=== PATIENT | female | born 1980 | race Hispanic/Latino ===

== ENCOUNTER 2021-07-15 14:51 | Outpatient (CLI) | payer OTHER, SELFPAY ==
--- NOTE | ~2021-07-15 | MM_ITS ---
EXAMINATION: MM screening lexis BI w lois HISTORY: Screening TECHNIQUE: Craniocaudal and mediolateral oblique 3-D tomosynthesis images were obtained and synthetic 2-D images were generated. CAD analysis was submitted and interpreted. COMPARISON: No prior mammogram is available for comparison at this institution. BREAST PARENCHYMAL COMPOSITION: The breasts are heterogenously dense, which may obscure small masses FINDINGS: There are bilateral breast masses which are obscured by overlying fibroglandular content. T here are no suspicious calcifications or architectural distortion. IMPRESSION: 1. Multiple bilateral breast masses. 2. Additional mammographic views and possible breast ultrasound are recommended. BI-RADS Category 0: Incomplete: Needs additional imaging evaluation. Reviewed, dictated and finalized at location A. IT BREEDER IMPRESSION: 1. Multiple bilateral breast masses. 2. Additional mammographic views and possible breast ultrasound are recommended . BI-RADS Category 0: Incomplete: Needs additional imaging evaluation.
== END 2021-07-15 14:52 | disposition home or self-care (01) ==
LOC: ANHIMG 14:54
PROVIDERS: PCP Internal Medicine Infectious Disease; Visit Provider Internal Medicine Infectious Disease
DX: Z12.31 Encounter for screening mammogram for malignant neoplasm of breast (principal); R92.8 Other abnormal and inconclusive findings on diagnostic imaging of breast
CPT/HCPCS: 77063; 77067

== ENCOUNTER 2021-08-08 13:40 | Outpatient (CLI) | payer OTHER, SELFPAY ==
--- NOTE | ~2021-08-08 | MMUS_ITS ---
EXAMINATION: MM diagnostic lexis RT w lois, US breast RT limited HISTORY: Follow-up right breast mass TECHNIQUE: Additional 3-D tomosynthesis images of the right breast were performed and synthetic 2-D i mages were generated. CAD analysis was submitted and interpreted. High resolution Limited right breas t ultrasound was performed. COMPARISON: Comparison to multiple prior studies sequentially, with oldest reviewed study dated 05/25. BREAST PARENCHYMAL COMPOSITION: The breasts are heterogenously dense, which may obscure small masses FINDINGS: MAMMOGRAPHIC FINDINGS: There is a mass in the upper outer quadrant of the right breast with layering milk of calcium. There are no suspicious calcifications or architectural distortion. ULTRASOUND: Limited right breast ultrasound: There are multiple cysts of the right breast in the upper outer quad rant, largest at 9:00, 4 cm from the nipple measuring 2.6 cm greatest dimension. This corresponds to the mammographic abnormality. No suspicious sonographic masses to suggest malignancy. IMPRESSION: 1. No evidence for malignancy in the right breast. Benign cysts. 2. Routine yearly screening mammogram and regular clinical breast examination are recommended. BI-RADS Category 2: Benign finding(s). Reviewed, dictated and finalized at location A. MANAGEMENT INTERNSHIP IMPRESSION: 1. No evidence for malignancy in the right breast. Benign cysts. 2. Routine yearly screening mammogram and regular clinical breast examination a re recommended. BI-RADS Category 2: Benign finding(s).
== END 2021-08-08 13:41 | disposition home or self-care (01) ==
LOC: ANHIMG 13:42
PROVIDERS: PCP Internal Medicine Infectious Disease; Visit Provider Internal Medicine Infectious Disease
DX: R92.8 Other abnormal and inconclusive findings on diagnostic imaging of breast (principal)
CPT/HCPCS: 76642; 77061; 77065; G0279

== ENCOUNTER 2023-07-25 12:18 | Inpatient (IN) | payer OTHER, SELFPAY ==
[2023-07-25] VITALS (11 sets, daily range): BP systolic 101–128; BP diastolic 63–80; PULSE 61–80; RESP 12–24; TEMP 36.5–36.7; O2SAT 96–100
--- NOTE | ~2023-07-25 | US_ITS ---
EXAMINATION: US right upper quadrant DATE: 07/25/2023 15:19 INDICATION: Pancreatitis. Right upper quadrant abdominal pain. TECHNIQUE: Multiple grayscale and Doppler ultrasound images of the abdomen were obtained. COMPARISON: CT abdomen and pelvis 07/25/23 FINDINGS: The visualized portions of the head and body of pancreas are normal. The liver is normal wi thout focal lesion. There is normal flow in main portal vein. The gallbladder is absent. The common d uct is normal and measures 6 mm. IMPRESSION: 1. Normal right upper quadrant ultrasound status post cholecystectomy. Reviewed, dictated and finalized at location A. R GENERATION TECHNICIAN
--- NOTE | ~2023-07-25 | CT_ITS ---
EXAMINATION: CT abdomen pelvis w con DATE: 07/25/2023 15:03 INDICATION: Pancreatitis TECHNIQUE: Computed tomography (CT) of the abdomen and pelvis was performed with 100 mL Omnipaque-350 intravenous contrast. Automated exposure control and iterative reconstruction technique were employe d. The dose-length product was 359.14 mGy-cm. COMPARISON: 07/19/2018 FINDINGS: Mild dependent atelectasis in bilateral lower lobes. Heart size is normal. No pericardial or pleural effusion. There are low-attenuation likely cystic lesions in the bilateral breasts. In the left breas t is a larger 3.1 x 2.3 cm cystic mass with lobular peripherally enhancing margins. Stable appearance of chronic mild intra and extrahepatic biliary ductal dilation likely related to prior cholecystecto my with surgical clips the gallbladder fossa. Spleen, pancreas, bilateral adrenal glands and kidneys are normal. Bladder, uterus and left ovary are unremarkable. 1.9 cm peripherally enhancing corpus lut eum cyst at the right ovary. Bowels including the appendix are normal. No free intraperitoneal gas or fluid. No pathologically enlarged abdominal or pelvic lymphadenopathy. Chronic mild likely physiolog ic anterior wedging at T11 and T12. Mild lumbar and lower thoracic spondylosis. IMPRESSION: 1. No acute intra-abdominal/pelvic process. 2. Cystic lesions at the bilateral breasts most prominent at 3.1 x 2.3 cm cystic mass with lobular pe ripherally enhancing margins. Correlate with prior mammography and right breast ultrasound. Reviewed, dictated and finalized at location A. EGE AND CAREER COUNSELOR IMPRESSION: 1. No acute intra-abdominal/pelvic process. 2. Cystic lesions at the bilateral breasts most prominent at 3.1 x 2.3 cm cysti c mass with lobular peripherally enhancing margins. Correlate with prior mammog neto and right breast ultrasound.
[2023-07-25 12:41] LABS: Basophils Absolute Auto 0.1 K/mm3 (0.0-0.1); Basophils Percent Auto 0.8 % (0.2-1.2); Eosinophils Absolute Auto 0.6 K/mm3 (0-0.3); Eosinophils Percent Auto 8.9 % (0-4.4); Hematocrit 44.7 % (37.0-47.0); Hemoglobin 14.4 g/dL (12.0-15.0); Immature Granulocyte Absolute 0.01 K/mm3 (0.00-0.031); Immature Granulocyte Percent A 0.2 % (0-0.5); Lymphocytes Absolute Auto 1.55 K/mm3 (0.9-3.2); Lymphocytes Percent Auto 23.7 % (18.3-44.2); Mean Corpuscular HGB Conc 32.2 g/dl (32-36); Mean Corpuscular Hemoglobin 29.3 pg (26-34); Mean Corpuscular Volume 90.9 fl (80-100); Mean Platelet Volume 9.9 fl (7.4-10.4); Monocytes Absolute Auto 0.4 K/mm3 (0.1-0.6); Monocytes Percent Auto 5.3 % (2.6-8.5); Neutrophils Percent Auto 61.1 % (45.5-73.1); Platelet Count Result 234 k/mm3 (150-375); Red Blood Count 4.92 M/mm3 (4.2-5.4); Red Cell Distribution Width 12.5 % (11.5-14.5); White Blood Count 6.6 K/mm3 (4.5-10.0)
[2023-07-25 12:51] LABS: Appearance Urine Clear (Clear); Bilirubin Urine Negative (Negative); Blood Urine Negative (Negative); Color Urine Yellow (Yellow); Glucose Urine UA Negative (Negative); Ketones Urine Negative (Negative); Leukocyte Esterase Ur Negative LEU/UL (Negative); Nitrate Urine Negative (Negative); Protein Urine Negative (Negative); Specific Grav Ur 1.013 (1.001-1.035); Urobilinogen Urine 0.2 mg/dL (<2.0)
[2023-07-25 12:55] LABS: Add Urine Microscopic? NO
[2023-07-25 13:04] LABS: Alanine Aminotransferase 65 U/L (6-35); Albumin Level 4.5 g/dL (3.5-5.1); Alkaline Phosphatase 135 U/L (38-126); Anion Gap 10 mmol/L (8-16); Aspartate Amino Transferase 109 U/L (14-36); Bilirubin,Total 0.5 mg/dL (0.2-1.3); Blood Urea Nitrogen 11 mg/dL (7-17); Calcium 9.6 mg/dL (8.4-10.2); Carbon Dioxide 28 mmol/L (22-30); Chloride 103 mmol/L (98-107); Estimated CRCL calculation 74 ml/min; Estimated Glomerular Filt Rate > 60; Glucose 94 mg/dL (65-110); Lipase 1126 U/L (23-300); Potassium 4.1 mmol/L (3.4-5.0); Sodium 141 mmol/L (137-145)
--- NOTE | 2023-07-25 13:55 | ECG_ITS ---
Measurements Intervals [place] Rate: 72 P: 39 VA: 118 QRS: 37 QRSD: 82 T: 32 QT: 403 QTc: 442 Interpretive Statements SINUS RHYTHM WITH SHORT VA INTERVAL LOW VOLTAGE- PRECORDIAL LEADS CONSIDER ANTEROSEPTAL INFARCT, AGE INDETERMINATE BASELINE WANDER- AVF, V5 ABNORMAL ECG NO PREVIOUS ECG AVAILABLE FOR COMPARISON Electronically Signed On 07-25-2023 15:52:39 BROOM MAN by Geoffrey Garcia D.O.
--- NOTE | 2023-07-25 13:55 | ED.ABDPAIN ---
HPI - Abdominal Pain General Chief Complaint: Abdominal Pain <Brenda Mccormack PA-C - Last Filed: 07/25/23 17:40> Stated Complaint: abdominal pain <Brenda Mccormack PA-C - Last Filed: 07/25/23 17:40> Time Seen by Provider: 07/25/23 13:43 <Brenda Mccormack PA-C - Last Filed: 07/25/23 17:40> History of Present Illness HPI narrative: 42-year-old with recent history of pancreatitis, s/p cholecystectomy reports for evaluation for epigastric abdominal pain that radiates to her back x6 days. Patient states symptoms started 6 days ago while at work and after eating. She was seen at [facility] emergency department and was admitted to the hospital for pancreatitis. Patient states she was started on Protonix and discharged home. Reports she had MRI, CT scan and ultrasound performed of her abdomen. She was discharged home 4 days ago and states she had mildly improved, however had eggs and apple juice for breakfast today which made her abdominal pain significantly worse. She reports 2 episodes of emesis with associated nausea. Denies fever, chest pain or shortness of breath, dysuria hematuria, diarrhea, melena or hematochezia, hematemesis. She denies alcohol or drug use. <Brenda Mccormack PA-C - Last Filed: 07/25/23 17:40> Related Data Allergies/Adverse Reactions: Allergies Allergy/AdvReac Type Severity Reaction Status Date / Time tramadol AdvReac Unknown Nausea and Verified 07/25/23 13:56 Vomiting <Brenda Mccormack PA-C - Last Filed: 07/25/23 17:40> Review of Systems Review of Systems: CONSTITUTIONAL: Denies fever, chills, or sweats. EYES: Denies visual changes, redness, or discharge. ENT: Denies rhinorrhea, congestion, sore throat, or otalgia. CARDIOVASCULAR: Denies chest pain, palpitations, or edema. RESPIRATORY: Denies cough or dyspnea. GASTROINTESTINAL: See HPI GENITOURINARY: Denies dysuria or hematuria. SKIN: Denies rash or itching. MUSCULOSKELETAL: Denies back pain, joint pain, or myalgia. NEUROLOGIC: Denies headache, numbness, or weakness. PSYCHIATRIC: Denies anxiety or depression. <Brenda Mccormack PA-C - Last Filed: 07/25/23 17:40> Exam Narrative: GENERAL: Well-appearing, well-nourished, and in no acute distress. HEAD: Normocephalic, atraumatic. EYES: PERRLA and EOMI. ENT: Nares clear, no rhinorrhea or epistaxis. Mucous membranes moist. NECK: Supple. CHEST: Clear to auscultation. No respiratory distress. HEART: Regular rate and rhythm. No murmur heard. Normal peripheral pulses. ABDOMEN: generalized abdominal pain, worse in the epigastrium with guarding. No rebound or rigidity. Negative Noé's sign, negative Jamison Red sign. No CVA tenderness. EXTREMITIES: Normal range of motion. No edema. SKIN: Warm, dry, no rash. NEURO: No focal deficits. Alert and oriented x3 <Brenda Mccormack PA-C - Last Filed: 07/25/23 17:40> Course TOBACCO EDUCATOR/PA Physician Supervision For this patient encounter, I reviewed the TOBACCO EDUCATOR or PA documentation, treatment plan, and medical decision making <Andres Livingston MD - Last Filed: 07/25/23 18:24> Vital Signs Vital signs: Vital Signs Temperature 97.7 F 07/25/23 12:26 Pulse Rate 74 07/25/23 12:26 Respiratory Rate 16 07/25/23 12:26 Blood Pressure 119/80 07/25/23 12:26 Pulse Oximetry 100 07/25/23 12:26 Oxygen Delivery Room Air 07/25/23 12:26 Temperature 97.7 F 07/25/23 12:26 Pulse Rate 64 07/25/23 18:05 Respiratory Rate 16 07/25/23 18:05 Blood Pressure 112/66 07/25/23 18:05 Pulse Oximetry 98 07/25/23 18:05 Oxygen Delivery Room Air 07/25/23 12:26 <Brenda Mccormack PA-C - Last Filed: 07/25/23 17:40> Vital Signs Temperature 97.7 F 07/25/23 12:26 Pulse Rate 74 07/25/23 12:26 Respiratory Rate 16 07/25/23 12:26 Blood Pressure 119/80 07/25/23 12:26 Pulse Oximetry 100 07/25/23 12:26 Oxygen Delivery Room Air 07/25/23 12:26 Temperature 97.7 F 07/25/23
[2023-07-25] MEDS: ONDANSETRON INJ 4 MG/2 ML VIAL IV PUSH (14:09)
[2023-07-25] MEDS: MORPHINE SULFATE (*CRX) 4 MG/ML INJ IV PUSH (14:10)
[2023-07-25] MEDS: SODIUM CHLORIDE 0.9% IV 1,000 ML 999 ML IV CONT ×2 (14:10→15:31)
[2023-07-25 15:25] LABS: Troponin I < 0.012 ng/mL (0.000-0.034)
[2023-07-25] MEDS: HYDROmorphone HCL INJ (*CRX) 1 MG/ML SYR 0.5 MG IV PUSH (15:36)
[2023-07-25] MEDS: ONDANSETRON INJ 4 MG/2 ML VIAL (15:39)
--- NOTE | 2023-07-25 18:49 | PM.IMHP ---
H&P: HPI History of Present Illness Date/Time: 07/25/23 17:00 Chief Complaint: Abdominal pain. Narrative: This is a very pleasant 42-year-old female with history of gastroesophageal reflux disease, cholecystectomy, and pancreatitis who presented to the emergency department via private vehicle from home for evaluation of abdominal pain. The patient provides the following history. Last she woke with mild GERD symptoms which seemed to improved after she took her Protonix. She ate lunch and not long thereafter she developed severe, squeezing and throbbing pain throughout the upper abdomen associated with nausea and vomiting. She was seen at [facility], was diagnosed with pancreatitis, and was admitted for further workup. She reports having an abdominal ultrasound and what sounds like an MRCP. Patient was told that those imaging tests were normal and that her pancreatitis was likely idiopathic. She received supportive care and was discharged home on Sunday feeling a bit better. She has been hesitant to eat much since that time however as she continues to have upper abdominal pain with eating. Breakfast this morning included eggs and not long thereafter pain returned with nausea and vomiting. She denies fever, chills, sweats, hematemesis, melena, and hematochezia. She takes pantoprazole at home but is on no other medications. She drinks alcohol very rarely. No family history of pancreatitis to her knowledge. She has been told that her lipids were mildly elevated in the past but she has never been treated for hypertriglyceridemia. No known history of gallstones. The only changes she has made recently was in her diet and it sounds like she has been following a keto diet since the of the year. In the ED: She was afebrile on arrival with stable vital signs. BMP and CBC were pretty unremarkable. Hepatic panel showed a total bilirubin 0.5, AST 109, ALT 65, alkaline phosphatase 135, lipase 1126. Urine was unremarkable. cT of the abdomen pelvis showed no acute intra-abdominal or pelvic process. Cystic lesions were noted of the bilateral breasts. Right upper quadrant ultrasound was normal status post cholecystectomy. Review of Systems Review of Systems: Twelve systems were reviewed and are negative except for as per HPI [facility] Past Medical History Medical History (Updated 07/25/23 @ 21:45 by Kylah Chávez PA-C) Gastroesophageal reflux disease Pancreatitis Surgical History Surgical History (Updated 07/25/23 @ 21:44 by Kylah Chávez PA-C) History of section History of cholecystectomy History of endometrial ablation Family History Family History Mother Dementia Hypertension Brain cancer Father Hypercholesteremia Hypertension Mother Diabetes mellitus Social History Social History Social History: Surrogate medical decision maker: Alan Thurman, spouse. Code status: Full code. Smoking status: Never smoker Alcohol intake: never Substance use: never Do You Feel Safe in your Home?: Yes Lack of Transportation: No Lack of Food: Never True Current Housing: I Have Housing Concerned About Future Housing: No Difficulty Paying Gas/Electric Bills: No Difficulty Paying for Meds: No Currently Unemployed: No Education: High School Diploma/GED Difficulty w/ Childcare or Family Care: No Additional living arrangements comments: Lives with spouse in 16-year-old daughter in [place]. 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 Spiritual care concerns: No Meds Home Medications and Allergies Home Medications Medication Instructions Recorded Confirmed Type pantoprazole 20 mg tablet,delayed 40 mg PO DAILY 07/25/23 07/25/23 History release Allergies Allergy/AdvReac Type Severity Reaction Status Date / Time tramadol A
[2023-07-25] MEDS: SODIUM CHLORIDE 0.9% IV 1,000 ML 125 ML IV CONT (19:01)
[2023-07-25 21:28] LABS: Magnesium 2.2 mg/dL (1.6-2.3); Triglycerides 154 mg/dL (<150)
[2023-07-25 22:29] LABS: Hepatitis B Surface Antigen Negative (Negative)
[2023-07-25 22:35] LABS: HAV RESULT Negative (Negative); Hepatitis B Core IgM Result Negative (Negative)
[2023-07-25 22:47] LABS: Hepatitis C Virus Antibody Negative (Negative)
[2023-07-26] MEDS: SODIUM CHLORIDE 0.9% IV 1,000 ML 125 ML IV CONT ×3 (02:41→20:27)
[2023-07-26 05:09] VITALS: BP 107/57; PULSE 57; RESP 14; TEMP 36.6; O2SAT 99
[2023-07-26 07:57] LABS: Hematocrit 37.5 % (37.0-47.0); Hemoglobin 12.1 g/dL (12.0-15.0); Mean Corpuscular HGB Conc 32.3 g/dl (32-36); Mean Corpuscular Hemoglobin 29.2 pg (26-34); Mean Corpuscular Volume 90.6 fl (80-100); Mean Platelet Volume 9.7 fl (7.4-10.4); Platelet Count Result 200 k/mm3 (150-375); Red Blood Count 4.14 M/mm3 (4.2-5.4); Red Cell Distribution Width 12.5 % (11.5-14.5); White Blood Count 5.5 K/mm3 (4.5-10.0)
[2023-07-26 08:11] LABS: Alanine Aminotransferase 89 U/L (6-35); Albumin Level 3.3 g/dL (3.5-5.1); Alkaline Phosphatase 115 U/L (38-126); Anion Gap 4 mmol/L (8-16); Aspartate Amino Transferase 77 U/L (14-36); Bilirubin,Total 0.4 mg/dL (0.2-1.3); Blood Urea Nitrogen 7 mg/dL (7-17); Calcium 8.3 mg/dL (8.4-10.2); Carbon Dioxide 25 mmol/L (22-30); Chloride 109 mmol/L (98-107); Estimated CRCL calculation 83 ml/min; Estimated Glomerular Filt Rate > 60; Glucose 90 mg/dL (65-110); Lipase 163 U/L (23-300); Magnesium 2.1 mg/dL (1.6-2.3); Potassium 3.7 mmol/L (3.4-5.0); Sodium 138 mmol/L (137-145)
[2023-07-26] MEDS: HYDROmorphone HCL INJ (*CRX) 1 MG/ML SYR 0.5 MG IV PUSH ×3 (10:59→20:31)
[2023-07-26 14:00] VITALS: BP 116/55; PULSE 63; RESP 18; TEMP 36.1; O2SAT 97
--- NOTE | 2023-07-26 16:09 | WPDGICN ---
Assessment and Plan Assessment and plan (1) Pancreatitis: Qualifiers: Acute pancreatitis complication: unspecified Chronicity: acute Pancreatitis type: unspecified pancreatitis type Qualified Code(s): K85.90 - Acute pancreatitis without necrosis or infection, unspecified Code(s): K85.90 - Acute pancreatitis without necrosis or infection, unspecified Status: Acute Assessment and Plan: no alcohol, mrcp normal, TG level ok npo, fluids will do EGD in am to check for other causes of pain and nausea (2) Gastroesophageal reflux disease: Code(s): K21.9 - Gastro-esophageal reflux disease without esophagitis Status: Acute (3) Nausea and vomiting in adult: Code(s): R11.2 - Nausea with vomiting, unspecified Status: Acute (4) Epigastric pain: Code(s): R10.13 - Epigastric pain Status: Acute (5) Elevated transaminase level: Code(s): R74.01 - Elevation of levels of liver transaminase levels Status: Acute GI Consult Note Consult date/time: 07/26/23 16:09 Reason for consult: pancreatitis HPI: Norma Abarca is a 42 year old female h/o gerd on ppi, cholecystectomy who few days ago had new episode of pancreatitis, admitted to [facility], MRCP was normal (reviewed) and went home but again with nausea, vomiting and severe epigastric pain. she does not use alcohol, no other previous episode of pancreatitis otherwise, here had mild elevated transaminases 60-70. Review of Systems Constitutional: Constitutional: Denies chills Eyes: Eyes: Denies blurry vision ENT: Reports Normal hearing present Cardiovascular: Cardiovascular: Denies pedal edema Respiratory: Respiratory: Denies cough Gastrointestinal: Gastrointestinal: Reports abdominal pain, Reports nausea and Reports vomiting Genitourinary: Genitourinary: Denies urinary urgency Musculoskeletal: Musculoskeletal: Denies arthralgias Integumentary/Breasts: Skin/Breast: Denies rash Neurologic: Denies Abnormal speech present Psychiatric: Psychiatric: Denies behavioral changes [facility] Past Medical History Medical History (Updated 07/26/23 @ 16:12 by Jeevan Hopkins MD) Elevated transaminase level Epigastric pain Gastroesophageal reflux disease Nausea and vomiting in adult Pancreatitis Surgical History Surgical History (Updated 07/25/23 @ 21:44 by Kylah Chávez PA-C) History of section History of cholecystectomy History of endometrial ablation Family History Family History Mother Dementia Hypertension Brain cancer Father Hypercholesteremia Hypertension Mother Diabetes mellitus Social History Social History Social History: Surrogate medical decision maker: Alan Thurman, spouse. Code status: Full code. Smoking status: Never smoker Alcohol intake: never Substance use: never Do You Feel Safe in your Home?: Yes Lack of Transportation: No Lack of Food: Never True Current Housing: I Have Housing Concerned About Future Housing: No Difficulty Paying Gas/Electric Bills: No Difficulty Paying for Meds: No Currently Unemployed: No Education: High School Diploma/GED Difficulty w/ Childcare or Family Care: No Additional living arrangements comments: Lives with spouse in 16-year-old daughter in [place]. 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 Spiritual care concerns: No Meds Home Medications and Allergies Home Medications Medication Instructions Recorded Confirmed Type pantoprazole 20 mg tablet,delayed 40 mg PO DAILY 07/25/23 07/25/23 History release Allergies Allergy/AdvReac Type Severity Reaction Status Date / Time tramadol AdvReac Unknown Rash Verified 07/25/23 18:48 Vital Signs Vital Signs - 24 hr 07/25/23 16:31 07/25/23 17:00 07/25/23 17:01
--- NOTE | 2023-07-26 16:35 | PM.IMPN ---
Progress Note: A&P Assessment and Plan (1) Pancreatitis: Qualifiers: Acute pancreatitis complication: unspecified Chronicity: acute Pancreatitis type: unspecified pancreatitis type Qualified Code(s): K85.90 - Acute pancreatitis without necrosis or infection, unspecified Code(s): K85.90 - Acute pancreatitis without necrosis or infection, unspecified Status: Acute Assessment and Plan: Etiology is not entirely clear (LFTs are a bit elevated though bilirubin is normal, no ductal dilatation noted on CT scan today, triglyceride level is only mildly elevated, PPI can rarely cause pancreatitis but less likely the cause). Suspected idiopathic pancreatitis. MRCP normal Continue supportive care with bowel rest and IV fluid rehydration. Analgesics and antiemetics are available as needed. EGD scheduled in the a.m. - continue NPO (2) Gastroesophageal reflux disease: Code(s): K21.9 - Gastro-esophageal reflux disease without esophagitis Status: Acute Assessment and Plan: Continue PPI with sips of water. (3) Breast cyst: Code(s): N60.09 - Solitary cyst of unspecified breast Status: Acute Assessment and Plan: CT scan showed incidental findings of lobular cysts in the breasts. Recommend mammogram and breast ultrasound as an outpatient. Subjective Date/time seen: 07/26/23 16:35 Interval history: Chief Complaint: Abdominal pain. Narrative: This is a very pleasant 42-year-old female with history of gastroesophageal reflux disease, cholecystectomy, and pancreatitis who presented to the emergency department via private vehicle from home for evaluation of abdominal pain. The patient provides the following history. Last she woke with mild GERD symptoms which seemed to improved after she took her Protonix. She ate lunch and not long thereafter she developed severe, squeezing and throbbing pain throughout the upper abdomen associated with nausea and vomiting. She was seen at [facility], was diagnosed with pancreatitis, and was admitted for further workup. She reports having an abdominal ultrasound and what sounds like an MRCP. Patient was told that those imaging tests were normal and that her pancreatitis was likely idiopathic. She received supportive care and was discharged home on Sunday feeling a bit better. She has been hesitant to eat much since that time however as she continues to have upper abdominal pain with eating. Breakfast this morning included eggs and not long thereafter pain returned with nausea and vomiting. She denies fever, chills, sweats, hematemesis, melena, and hematochezia. She takes pantoprazole at home but is on no other medications. She drinks alcohol very rarely. No family history of pancreatitis to her knowledge. She has been told that her lipids were mildly elevated in the past but she has never been treated for hypertriglyceridemia. No known history of gallstones. The only changes she has made recently was in her diet and it sounds like she has been following a keto diet since the 1st of the year. In the ED: She was afebrile on arrival with stable vital signs. BMP and CBC were pretty unremarkable. Hepatic panel showed a total bilirubin 0.5, AST 109, ALT 65, alkaline phosphatase 135, lipase 1126. Urine was unremarkable. cT of the abdomen pelvis showed no acute intra-abdominal or pelvic process. Cystic lesions were noted of the bilateral breasts. Right upper quadrant ultrasound was normal status post cholecystectomy. Interval Hx: 07/26/2023 Pt seen this am, she reports ongoing abdominal pain overnight, along with n/v. She denies any chest pain, n/v at this time. Review of Systems Review of Systems: Twelve systems were reviewed and are negative except for as per HPI Exam Narrative: General: laying in bed Well-developed, nontoxic-appearing female in moderate amount of distress due to pain. HEENT: Normocephalic, atrauma
[2023-07-26] MEDS: ONDANSETRON INJ 4 MG/2 ML VIAL IV PUSH ×2 (17:25→20:28)
[2023-07-26 20:42] VITALS: BP 123/81; PULSE 78; RESP 18; TEMP 36.1; O2SAT 97
[2023-07-27] VITALS (9 sets, daily range): BP systolic 84–127; BP diastolic 40–71; PULSE 60–88; RESP 12–25; TEMP 36–36.9; O2SAT 98–100; BMI 26.5
[2023-07-27] MEDS: SODIUM CHLORIDE 0.9% IV 1,000 ML 125 ML IV CONT ×2 (04:44→17:41)
[2023-07-27] MEDS: PANTOPRAZOLE 40 MG TABLET PO (08:25)
[2023-07-27] MEDS: LACTATED RINGERS 1,000 ML 150 ML IV CONT (11:02)
--- NOTE | 2023-07-27 11:04 | P.PNAN_ITS ---
Anes - Initial Pre Proc Eval Procedure: Operation Date: 07/27/23 15:30 Proposed Procedures p Esophagogastroduodenoscopy - Jeevan Hopkins MD Date/Time: 07/27/23 11:04 Surgeon: Destiny Bae MD Pre Op Diagnosis: PANCREATITIS Patient Data Age: 42 Gender: F Height: 1.6 m Weight: 67.9 kg Last Vital Signs Temp 98.5 F 07/27/23 10:59 Pulse 84 07/27/23 10:59 Resp 20 07/27/23 10:59 BP 127/71 07/27/23 10:59 Pulse Ox 100 07/27/23 10:59 O2 Del Method Room Air 07/27/23 10:59 Allergies Allergy/AdvReac Type Severity Reaction Status Date / Time tramadol AdvReac Unknown Rash Verified 07/27/23 10:56 Home Medications Medication Instructions Recorded Confirmed Type pantoprazole 20 mg tablet,delayed 40 mg PO DAILY 07/25/23 07/25/23 History release Patient hx anesthesia problems: none Family hx anesthesia problems: none Results Review: All pre-operative results and documents have been reviewed as part of the pre- operative evaluation. [facility] Past Medical History Medical History (Updated 07/26/23 @ 16:12 by Jeevan Hopkins MD) Elevated transaminase level Epigastric pain Gastroesophageal reflux disease Nausea and vomiting in adult Pancreatitis Surgical History Surgical History (Updated 07/25/23 @ 21:44 by Kylah Chávez PA-C) History of section History of cholecystectomy History of endometrial ablation Family History Family History Mother Dementia Hypertension Brain cancer Father Hypercholesteremia Hypertension Mother Diabetes mellitus Social History Social History Social History: Surrogate medical decision maker: Alan Thurman, spouse. Code status: Full code. Smoking status: Never smoker Alcohol intake: never Substance use: never Do You Feel Safe in your Home?: Yes Lack of Transportation: No Lack of Food: Never True Current Housing: I Have Housing Concerned About Future Housing: No Difficulty Paying Gas/Electric Bills: No Difficulty Paying for Meds: No Currently Unemployed: No Education: High School Diploma/GED Difficulty w/ Childcare or Family Care: No Additional living arrangements comments: Lives with spouse in 16-year-old [place] in [place]. 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 Spiritual care concerns: No Anes - Eval Final PreProcedure Day of Procedure 07/27/23 11:04 Patient weight: normal Heart: regular rate and rhythm Lungs: clear to auscultation Airway: Mallampati scale class II Neurological: alert and oriented Last oral intake: >/= 8 hours ASA classification: III Emergent: no Anesthetic plan: proceed Anesthesia type and monitoring: general GIVS and standard monitoring Results Review: All pre-operative results and documents have been reviewed as part of the pre- operative evaluation. Informed Consent: The patient's anesthetic plan and its attendant risks and benefits were discussed with the patient/family/POA. Questions were solicited and answers provided to the satisfaction of the patient/family/POA.
--- NOTE | 2023-07-27 15:19 | PM.IMPN ---
Progress Note: A&P Assessment and Plan (1) Pancreatitis: Qualifiers: Acute pancreatitis complication: unspecified Chronicity: acute Pancreatitis type: unspecified pancreatitis type Qualified Code(s): K85.90 - Acute pancreatitis without necrosis or infection, unspecified Code(s): K85.90 - Acute pancreatitis without necrosis or infection, unspecified Status: Acute Assessment and Plan: Etiology is not entirely clear MRCP normal Analgesics and antiemetics are available as needed. EGD revealed gastritis, pending biopsies -GI recommends liquid diet for now and continue Protonix - (2) Gastroesophageal reflux disease: Code(s): K21.9 - Gastro-esophageal reflux disease without esophagitis Status: Acute Assessment and Plan: Continue PPI (3) Breast cyst: Code(s): N60.09 - Solitary cyst of unspecified breast Status: Acute Assessment and Plan: CT scan showed incidental findings of lobular cysts in the breasts. Recommend mammogram and breast ultrasound as an outpatient. Plan Continue home medications: VTE Prophylaxis: SCDs DIET: Liquid diet per GI Anticipated hospital stay: Observation plan to discharge home in the a.m Code Status: Full Subjective Date/time seen: 07/27/23 15:19 Interval history: Chief Complaint: Abdominal pain. Narrative: This is a very pleasant 42-year-old female with history of gastroesophageal reflux disease, cholecystectomy, and pancreatitis who presented to the emergency department via private vehicle from home for evaluation of abdominal pain. The patient provides the following history. Last she woke with mild GERD symptoms which seemed to improved after she took her Protonix. She ate lunch and not long thereafter she developed severe, squeezing and throbbing pain throughout the upper abdomen associated with nausea and vomiting. She was seen at [facility], was diagnosed with pancreatitis, and was admitted for further workup. She reports having an abdominal ultrasound and what sounds like an MRCP. Patient was told that those imaging tests were normal and that her pancreatitis was likely idiopathic. She received supportive care and was discharged home on Sunday feeling a bit better. She has been hesitant to eat much since that time however as she continues to have upper abdominal pain with eating. Breakfast this morning included eggs and not long thereafter pain returned with nausea and vomiting. She denies fever, chills, sweats, hematemesis, melena, and hematochezia. She takes pantoprazole at home but is on no other medications. She drinks alcohol very rarely. No family history of pancreatitis to her knowledge. She has been told that her lipids were mildly elevated in the past but she has never been treated for hypertriglyceridemia. No known history of gallstones. The only changes she has made recently was in her diet and it sounds like she has been following a keto diet since the 1st of the year. In the ED: She was afebrile on arrival with stable vital signs. BMP and CBC were pretty unremarkable. Hepatic panel showed a total bilirubin 0.5, AST 109, ALT 65, alkaline phosphatase 135, lipase 1126. Urine was unremarkable. cT of the abdomen pelvis showed no acute intra-abdominal or pelvic process. Cystic lesions were noted of the bilateral breasts. Right upper quadrant ultrasound was normal status post cholecystectomy. Interval Hx: 07/26/2023 Pt seen this am, she reports ongoing abdominal pain overnight, along with n/v. She denies any chest pain, n/v at this time. 07/27/2023: Patient seen this afternoon s/p: EGD with diagnosis gastritis, she complains of ongoing nausea and diffuse abdominal pain at this time, she states she has not had anything to eat or drink since procedure, she reported overnight events of nausea vomiting x4, she denies any fever chills. Review of Systems Review of Systems: All systems rev
[2023-07-28] MEDS: KETOROLAC 30 MG/ML VIAL (*BKC) IV PUSH (02:05)
[2023-07-28] MEDS: SODIUM CHLORIDE 0.9% IV 1,000 ML 125 ML IV CONT ×2 (02:06→08:16)
[2023-07-28 04:55] VITALS: BP 118/66; PULSE 65; RESP 16; TEMP 36.5; O2SAT 99
[2023-07-28] MEDS: PANTOPRAZOLE 40 MG TABLET PO (08:15)
--- NOTE | 2023-07-28 09:51 | PM.DS ---
DS: Admitting Diagnosis Discharge Date 07/28/2023 Admitting Diagnosis Pancreatitis DS: Discharge Diagnosis Discharge Diagnosis (1) Elevated transaminase level: Code(s): R74.01 - Elevation of levels of liver transaminase levels Status: Acute Assessment and Plan: Suspect likely due to recent pancreatitis (2) Epigastric pain: Code(s): R10.13 - Epigastric pain Status: Resolved Assessment and Plan: Resolved (3) Nausea and vomiting in adult: Code(s): R11.2 - Nausea with vomiting, unspecified Status: Resolved Assessment and Plan: Resolved (4) Breast cyst: Qualifiers: Laterality: right Qualified Code(s): N60.01 - Solitary cyst of right breast Code(s): N60.09 - Solitary cyst of unspecified breast Status: Acute Assessment and Plan: Incidental finding per CT 1. No acute intra-abdominal/pelvic process. 2. Cystic lesions at the bilateral breasts most prominent at 3.1 x 2.3 cm cystic mass with lobular peripherally enhancing margins. Correlate with prior mammography and right breast ultrasound. -please follow-up outpatient with your PCP for right breast ultrasound (5) Gastroesophageal reflux disease: Qualifiers: Esophagitis presence: without esophagitis Qualified Code(s): K21.9 - Gastro-esophageal reflux disease without esophagitis Code(s): K21.9 - Gastro-esophageal reflux disease without esophagitis Status: Acute Assessment and Plan: -continue home PPI (6) Pancreatitis: Qualifiers: Acute pancreatitis complication: unspecified Chronicity: acute Pancreatitis type: unspecified pancreatitis type Qualified Code(s): K85.90 - Acute pancreatitis without necrosis or infection, unspecified Code(s): K85.90 - Acute pancreatitis without necrosis or infection, unspecified Status: Acute Assessment and Plan: -history of acute pancreatitis recently seen and treated at OSH (7) Gastritis: Qualifiers: Gastritis type: unspecified gastritis Chronicity: acute Gastritis bleeding: without bleeding Qualified Code(s): K29.00 - Acute gastritis without bleeding Code(s): K29.70 - Gastritis, unspecified, without bleeding Status: Acute Assessment and Plan: As evidenced by EGD Esophagus was examined mucosa was normal no esophagitis [id number] gastritis seen in the stomach, biopsies pending Liquid diet, s/p Procedure then advance diet as tolerated Plan -must follow-up with GI office within 7 days, please return call to the office if you have not heard from them -continue home medication pantoprazole daily DS: Summary Hospital Course Reason for hospitalization: This is a very pleasant 42-year-old female with history of gastroesophageal reflux disease, cholecystectomy, and pancreatitis who presented to the emergency department via private vehicle from home for evaluation of abdominal pain Hospital Course: The patient provides the following history. Last she woke with mild GERD symptoms which seemed to improved after she took her Protonix. She ate lunch and not long thereafter she developed severe, squeezing and throbbing pain throughout the upper abdomen associated with nausea and vomiting. She was seen at [facility], was diagnosed with pancreatitis, and was admitted for further workup. She reports having an abdominal ultrasound and what sounds like an MRCP. Patient was told that those imaging tests were normal and that her pancreatitis was likely idiopathic. She received supportive care and was discharged home on Sunday feeling a bit better. She has been hesitant to eat much since that time however as she continues to have upper abdominal pain with eating. Breakfast this morning included eggs and not long thereafter pain returned with nausea and vomiting. She denies fever, chills, sweats, hematemesis, melena, and hematochezia. She takes pantoprazo
== END 2023-07-28 11:14 | disposition home or self-care (01) | DRG 440 ==
LOC: ANHED 15:45 → ANH3MEDSUR 16:37
PROVIDERS: Emergency Medicine; Internal Medicine Gastroenterology; Physician Assistant; Admitting Provider General Practice; Emergency Provider Physician Assistant; PCP Internal Medicine Infectious Disease; Visit Provider Nurse Practitioner
PROC: 0DJ08ZZ Inspection of Upper Intestinal Tract, Via Natural or Artificial Opening Endoscopic (ICD-10-PCS; CPT 43235; principal; 2023-07-27 15:30)
DX: K85.90 Acute pancreatitis without necrosis or infection, unspecified (principal); K29.70 Gastritis, unspecified, without bleeding; K21.9 Gastro-esophageal reflux disease without esophagitis; N60.02 Solitary cyst of left breast; N60.01 Solitary cyst of right breast; R74.01 Elevation of levels of liver transaminase levels
CPT/HCPCS: 36415; 74177; 76705; 80053; 80074; 81003; 81025; 83690; 83735; 84478; 84484; 85025; 85027; 88305; 93005; 96361; 96374; 96375; 96376; 99285; A9270; G0378; J1170; J1885; J2270; J2405; J2704; J7030; J7120; Q9967

== ENCOUNTER 2023-08-12 22:03 | Emergency (ER) | payer OTHER, SELFPAY ==
--- NOTE | ~2023-08-12 | CT_ITS ---
CT of the Abdomen and Pelvis: Indication: Abdominal pain Technique: 2.5 mm axial scans were obtained through the abdomen and pelvis following intravenous adm inistration of 100 cc of Omnipaque 350. Dose reduction technique was used on this scan by utilizing a utomated exposure control and iterative reconstruction technique. The dose-length product (DLP) was 2 79.00 mGy-cm. COMPARISON: 07/25/2023 Findings: Scans through the lung bases are unremarkable. The liver, spleen, pancreas, adrenals and kidneys are within normal limits. Cholecystectomy clips are present. No evidence of aortic aneurysm. No lymphadenopathy. No bowel obstruction or bowel wall thickening. There is no evidence to suggest acute appendicitis. Images through the pelvis were performed. Urinary bladder unremarkable. No pelvic mass seen. No ascit es. Impression: No significant abnormalities seen. Reviewed, dictated and finalized at [facility]. ER HELPER Impression: No significant abnormalities seen.
[2023-08-12 22:06] VITALS: BP 122/65; PULSE 91; RESP 15; TEMP 36.6; O2SAT 99
[2023-08-12 22:56] LABS: Basophils Percent Auto 0.5 % (0.2-1.2); Eosinophils Absolute Auto 0.6 K/mm3 (0-0.3); Eosinophils Percent Auto 10.7 % (0-4.4); Hematocrit 40.8 % (37.0-47.0); Immature Granulocyte Absolute 0.02 K/mm3 (0.00-0.031); Immature Granulocyte Percent A 0.3 % (0-0.5); Lymphocytes Absolute Auto 1.46 K/mm3 (0.9-3.2); Lymphocytes Percent Auto 25.5 % (18.3-44.2); Mean Corpuscular HGB Conc 31.9 g/dl (32-36); Mean Corpuscular Volume 91.1 fl (80-100); Mean Platelet Volume 10.3 fl (7.4-10.4); Monocytes Absolute Auto 0.7 K/mm3 (0.1-0.6); Monocytes Percent Auto 12.6 % (2.6-8.5); Neutrophils Absolute Auto 2.9 K/mm3 (1.3-6.7); Neutrophils Percent Auto 50.4 % (45.5-73.1); Platelet Count Result 213 k/mm3 (150-375); Red Blood Count 4.48 M/mm3 (4.2-5.4); Red Cell Distribution Width 12.3 % (11.5-14.5); White Blood Count 5.7 K/mm3 (4.5-10.0)
[2023-08-12 23:02] LABS: Appearance Urine Clear (Clear); Bilirubin Urine Negative (Negative); Blood Urine Negative (Negative); Color Urine Yellow (Yellow); Glucose Urine UA Negative (Negative); Ketones Urine Trace mg/dL (Negative); Leukocyte Esterase Ur Negative LEU/UL (Negative); Nitrate Urine Negative (Negative); Protein Urine Negative (Negative); Specific Grav Ur 1.032 (1.001-1.035)
[2023-08-12 23:07] LABS: Alanine Aminotransferase 29 U/L (6-35); Albumin Level 4.1 g/dL (3.5-5.1); Alkaline Phosphatase 100 U/L (38-126); Anion Gap 6 mmol/L (8-16); Aspartate Amino Transferase 33 U/L (14-36); Bilirubin,Total 0.4 mg/dL (0.2-1.3); Blood Urea Nitrogen 8 mg/dL (7-17); Calcium 9.2 mg/dL (8.4-10.2); Carbon Dioxide 28 mmol/L (22-30); Chloride 101 mmol/L (98-107); Estimated CRCL calculation 74 ml/min; Estimated Glomerular Filt Rate > 60; Glucose 89 mg/dL (65-110); Lipase 130 U/L (23-300); Potassium 3.4 mmol/L (3.4-5.0); Sodium 135 mmol/L (137-145)
[2023-08-12 23:08] LABS: Add Urine Microscopic? NO
[2023-08-12 23:50] VITALS: PULSE 77; RESP 19; O2SAT 100
--- NOTE | 2023-08-12 23:50 | ED.GENADULT ---
HPI - General Adult General Chief complaint: Abdominal Pain Stated complaint: abdominal pain Time Seen by Provider: 08/12/23 23:39 Source: patient Mode of arrival: ambulatory Limitations: no limitations History of Present Illness HPI narrative: This is a 42-year-old female who presents to the ED with chief complaint of upper abdominal pain beginning yesterday and worsening acutely today. Reports she was admitted here a couple of weeks ago for pancreatitis and today the pain feels similar. Reports is located in the epigastrium and radiates to the back somewhat. Patient reports nausea but no episodes of vomiting today. States she has been able to tolerate small amounts of water and soft food but eating seems to make the pain worse. Endorses chills but no recorded fevers. Denies chest pain, diarrhea, shortness of breath, cough. Past abdominal surgical history of cholecystectomy, section Related Data Home Medications Medication Instructions Recorded Confirmed pantoprazole 20 mg tablet,delayed 40 mg PO DAILY 07/25/23 08/07/23 release Allergies Allergy/AdvReac Type Severity Reaction Status Date / Time tramadol AdvReac Unknown Rash Verified 08/12/23 22:10 Review of Systems Review of Systems: All systems as dictated in [facility] Past Medical History Medical History Elevated transaminase level Epigastric pain Gastroesophageal reflux disease Nausea and vomiting in adult Pancreatitis Surgical History Surgical History History of section History of cholecystectomy History of endometrial ablation Family History Family History Mother Dementia Hypertension Brain cancer Father Hypercholesteremia Hypertension Mother Diabetes mellitus Social History Social History Social History: Surrogate medical decision maker: Alan Thurman, spouse. Code status: Full code. Smoking status: Never smoker Alcohol intake: never Substance use: never Do You Feel Safe in your Home?: Yes Lack of Transportation: No Lack of Food: Never True Current Housing: I Have Housing Concerned About Future Housing: No Difficulty Paying Gas/Electric Bills: No Difficulty Paying for Meds: No Currently Unemployed: No Education: High School Diploma/GED Difficulty w/ Childcare or Family Care: No Additional living arrangements comments: Lives with spouse in 16-year-old daughter in [place]. 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 Spiritual care concerns: No Exam Narrative: GENERAL: Appears in pain. No diaphoresis HEAD: Normocephalic, atraumatic. EYES: PERRLA and EOMI. ENT: Nares clear, no rhinorrhea or epistaxis. Mucous membranes moist. Oropharynx without tonsillar hypertrophy exudate or other lesions. NECK: Supple. No adenopathy or masses. CHEST: No respiratory distress. Clear to auscultation. No wheezes rales or rhonchi HEART: Regular rate and rhythm. No murmur heard. Normal peripheral pulses. ABDOMEN: Tenderness to the epigastrium. Soft, nondistended, normal active bowel sounds. No rigidity MSK: Normal range of motion. No edema. SKIN: Warm, dry, no rash. NEURO: Alert and oriented x3. No focal deficits. PSYCH: Normal mood and affect. Course Course Emergency Course: Re-evaluation at 1:57 a.m.: Pain is improved after GI cocktail but still feeling nauseous. Re-evaluation 0230: Feeling improved overall. Nausea improved with Reglan. She feels comfortable going home. Vital Signs Vital signs: Vital Signs Temperature 98 F 08/12/23 22:06 Pulse Rate 91 08/12/23 22:06 Respiratory Rate 15 08/12/23 22:06 Blood Pressure 122/65 08/12/23 22:06 Pulse Oximetry 99 08/12/23 22:06 Oxygen Delivery Room Air 08/12/23 22
[2023-08-13] VITALS (8 sets, daily range): BP systolic 100; BP diastolic 67; PULSE 64–82; RESP 12–17; O2SAT 96–99
[2023-08-13] MEDS: SODIUM CHLORIDE 0.9% IV 1,000 ML 999 ML IV CONT (00:09)
[2023-08-13] MEDS: ONDANSETRON INJ 4 MG/2 ML VIAL IV PUSH (00:10)
[2023-08-13] MEDS: HYDROmorphone HCL INJ (*CRX) 1 MG/ML SYR 0.5 MG IV PUSH (00:10)
[2023-08-13] MEDS: BELLADONNA ALK/PHENOB ELIX 10 ML, MAG HYDROX/ALUMINUM HYD/SIMETH 30 ML, LIDOCAINE HCL 2... PO (01:26)
[2023-08-13] MEDS: METOCLOPRAMIDE HCL INJ 10 MG/2 ML VIAL IV PUSH (02:02)
== END 2023-08-13 02:52 | disposition home or self-care (01) ==
PROVIDERS: Emergency Medicine; Emergency Provider Physician Assistant; PCP Internal Medicine Infectious Disease
DX: R10.13 Epigastric pain (principal); K21.9 Gastro-esophageal reflux disease without esophagitis; Z90.49 Acquired absence of other specified parts of digestive tract
CPT/HCPCS: 36415; 74177; 80053; 81003; 81025; 83690; 85025; 96361; 96374; 96375; 99284; A9270; J1170; J2405; J2765; J7030; Q9967

== ENCOUNTER 2023-08-30 12:06 | Outpatient (CLI) | payer OTHER, SELFPAY ==
--- NOTE | ~2023-08-30 | CT_ITS ---
EXAMINATION: CT abdomen pelvis w con INDICATION: Abdominal pain TECHNIQUE: Computed tomographic images of the abdomen and pelvis were obtained after the administrati on of 100 cc of Omnipaque 350 intravenous contrast. The dose-length product (DLP) was 300.73 mGy-cm. Automated exposure control and iterative reconstruction technique were employed. COMPARISON: 08/13/2023 FINDINGS: Minimal dependent atelectasis is present in the lung bases. The heart size is normal. Carter es of cholecystectomy are noted. The liver, spleen, pancreas, and adrenal glands are normal. The kidn eys are unremarkable. No pathologically enlarged abdominal or pelvic lymph nodes are identified. No f ree intraperitoneal gas or evidence of bowel obstruction. A moderate volume of colonic stool is prese nt. There is formed stool in the nondistended distal small bowel, consistent with slow transit. IMPRESSION: 1. Constipation. Reviewed, dictated and finalized at location L. GRAM MACHINE OPERATOR IMPRESSION: 1. Constipation.
== END 2023-08-30 12:07 | disposition home or self-care (01) ==
LOC: ANHIMG 12:07
PROVIDERS: PCP Internal Medicine Infectious Disease; Visit Provider Internal Medicine Infectious Disease
DX: R10.9 Unspecified abdominal pain (principal); K59.00 Constipation, unspecified
CPT/HCPCS: 74177; Q9967

== ENCOUNTER 2023-09-05 13:03 | Outpatient (CLI) | payer OTHER, SELFPAY ==
--- NOTE | ~2023-09-05 | MMUS_ITS ---
EXAMINATION: MM diagnostic lexis BI w lois, US breast BI complete HISTORY: Cystic lesions of both breasts reported on CT examination TECHNIQUE: Additional 3-D tomosynthesis images of were performed and synthetic 2-D images were genera chetna. CAD analysis was submitted and interpreted. High resolution bilateral complete breast ultrasound examination including all 4 quadrants and subareolar areas was performed. COMPARISON: August 08, 2021 diagnostic right mammogram and limited right breast ultrasound examinat ion July 15, 2021 bilateral screening mammogram BREAST PARENCHYMAL COMPOSITION: The breasts are heterogeneously dense, which may obscure small masses . FINDINGS: MAMMOGRAPHIC FINDINGS: Bilateral benign calcifications. Multiple bilateral breast masses, relatively low-density, circumscribed, somewhat halo sign, suggesti ng multiple bilateral breast cysts, some measuring up to 2 cm or more on each side. No suspicious mass, architectural distortion, malignant calcification, skin thickening or retraction of either breast is detected. ULTRASOUND: Multiple bilateral breast cysts are noted, measuring up to 3 cm maximal dimension on the right at 9:0 0 2 cm from nipple, measuring up to 1.8 cm on the left. Some cysts are simple and some mildly complic ated or septated. No suspicious mass or shadowing is detected. IMPRESSION: 1. Multiple bilateral benign cysts; no evidence of malignancy 2. Routine annual mammographic screening is recommended BI-RADS Category 2: Benign finding(s). Examination done Reviewed, dictated and finalized at location A. IMPRESSION: 1. Multiple bilateral benign cysts; no evidence of malignancy 2. Routine annual mammographic screening is recommended BI-RADS Category 2: Benign finding(s). Examination done
== END 2023-09-05 13:04 | disposition home or self-care (01) ==
LOC: ANHIMG 13:46
PROVIDERS: PCP Internal Medicine Infectious Disease; Visit Provider Internal Medicine Infectious Disease
DX: N60.09 Solitary cyst of unspecified breast (principal); R92.8 Other abnormal and inconclusive findings on diagnostic imaging of breast
CPT/HCPCS: 76641; 77062; 77066; G0279

== ENCOUNTER 2024-10-07 15:33 | Outpatient (CLI) | payer OTHER, SELFPAY ==
--- NOTE | ~2024-10-07 | XR_ITS ---
AP view of the pelvis and AP and lateral views of the bilateral hips Clinical history: Pain Findings: No acute fracture or dislocation is seen. Osseous alignment is anatomic. Bilateral hip and SI joint spaces are preserved. Soft tissues are unremarkable. Impression: No significant abnormality is seen. Reviewed, dictated and finalized at location . Impression: No significant abnormality is seen.
--- NOTE | ~2024-10-07 | XR_ITS ---
Lumbosacral Spine: AP and lateral views Clinical History: Pain Findings: The normal lordotic curve is maintained. The vertebral bodies and posterior elements are i ntact. The intervertebral disc spaces are preserved. The sacroiliac joints are normally outlined. Impression: No significant abnormality. Reviewed, dictated and finalized at [facility]. Impression: No significant abnormality.
--- OUTSIDE RECORDS SUMMARY | 2024-10-07 16:32 | XMS_ITS | Data Portability ---
Author Organization [place] - [facility] [employer], Main Office Address [address] [place] [address] Care Team Providers Care Vp Treasurer Name Role Phone KIRAN GRIGGS Primary Care Provider KIRAN GRIGGS Referring Provider Assessment Encounter Date Assessment Date Assessment LastModified by Organization Details LastModified Time 01/11/2023 01/11/2023 This note is dictated and transcribed by [employer]. [employer] variances may occur. Despite proofreading, typographical errors may occur. Not available 01/11/2023 16:05:06 01/25/2023 01/25/2023 This note is dictated and transcribed by [employer]. [employer] variances may occur. Despite proofreading, typographical errors may occur. Not available 01/25/2023 16:29:00 02/20/2023 02/20/2023 This note is dictated and transcribed by [employer]. [employer] variances may occur. Despite proofreading, typographical errors may occur. 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 It is possible she has some mild underlying degenerative changes in the patellofemoral joint are not visualized on radiographs. She does not want to be taken off work at this point and I have discussed with her that if she needs to be taken off work we can provide a note to her. It sounds like from her history that she should not be given prescription strength nonsteroidal anti-inflammatory medication to decrease her inflammation and instead I have offered her a cortisone shot. She was a little bit nervous about that. She has had cortisone shots in her heels to treat plantar fasciitis in the past. She underwent plantar fascial release on the right 2 years ago and on the left December 22 and these are still little bit painful for. I discussed risks of injection including risk of infection with her. After ChloraPrep prep, 80 mg of Depo-Medrol and 4 cc of 0.5% ropivacaine were injected into the left knee without difficulty. She was relieved that it was not very painful. I recommended a course of physical therapy anterior knee pain protocol focusing on answering quadriceps stretching and hip abduction external rotation core strengthening. She should avoid squatting and stairs to the extent possible. I have discussed with her that this is an overuse problem primarily. Losing a little bit of weight can be helpful also. I have explained that she may have pathology that we cannot identify on the plain radiographs and if she is not better in 6 weeks I would recommend MRI scan be considered. I will see her back in 6 weeks assess her progress. 30 minutes were spent total care this patient more than half the time spent in ohms-ke-adjt care. [email or web address] Not available 05/07/2023 09:32:26 06/02/2024 06/02/2024 43-year-old patient presents today with left knee pain that started 2 weeks ago. She states she went on a long trip to [place] that involved multiple flights, a [address], and she had to run to catch a flight at one point. This made her knee become very painful. She also experienced cramps in her calf. Since the trip she is experiencing pain with daily activities, and swelling. 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 She has been taking Tylenol for the pain, which has not helped. She states she is unable to take anti-inflammatori es and is allergic to tramadol. She denies any issues with this knee in the past. She rates her pain 8/10 today. Imaging: X-rays reviewed show no acute bony abnormality, no fracture. Preserved joint spaces throughout. Physical exam: Antalgic gait. Minimal edema. Tenderness with palpitation over medial joint line and over patellar tendon. Range of motion 5-100. Pain preventing movement past those degrees. Negative Segundo's. Stable Yeison's, varus/valgus stress. Sensation intact throughout. We will start with a course of physical therapy to work on range of motion. She can continue to take Tylenol as needed. We also recommend Voltaren gel. She states that she has been unable to walk without a limp and it is painful to do her job. We discussed the benefits of a cortisone injection. She elected to proceed with that today. It was given without issue. She must return to work after this appointment so we will give her a note for light duty, desk work only for today. We can see her back as needed for pain. She is in agreement with this plan. [email or web address] Not available 06/02/2024 12:25:59 Plan of Treatment Reminders Order Date Submit Date Provider Last Modified By Organization Details Last Modified Time Details Appointments None recorded. Lab None recorded. Referral physical therapist referral - Please contact pt for L knee. Thanks 2023 024 [email or web address] [facility], [address], [place], [address], 4 20:15:51 Procedures injection/a spiration joint/bursa (PROC) 2023 024 [email or web address] In-Office Order, Internal Use Only DO Not Attach Compendium DO Not Attach Compendium, Do Not Delete/merge, [id number] 4 12:08:37 injection/a spiration joint/bursa (PROC) - in office procedure, administere d by provider 2022 023 [email or web address] In-Office Order, Internal Use Only DO Not Attach Compendium DO Not Attach Compendium, Do Not Delete/merge, [id number] 3 15:54:47 Surgeries None recorded. Imaging None recorded. Medication Orders bupivacaine HCl 0.5 % (5 mg/mL) injection solution 2023 024 [id number], [address], [place], [place], [id number], 4 20:15:51 Kenalog 10 mg/mL suspension for injection 2023 024 [id number], [address], [place], [place], [id number], 4 20:15:51 ropivacaine (PF) 5 mg/mL (0.5 %) injection solution [address] [id number], [address], [place], [place], [id number], 11:43:53 Depo-Medrol 80 mg/mL suspension for injection [address] [facility]87[facility], [address], [place], [place], [phone], 11:43:49 Patient TargetsNo targets recorded. Patient InstructionsNo instructions recorded. Reason for Referral Physical Therapist Referral for Pain of left knee joint L knee Please contact pt for L knee. Thanks Referring Physician: Payton Rivera, Orthopedic Surgery, Encounter Date: 06/02/2024 Results Created Date Observation Date Name Description Value Unit Range Abnormal Flag Note LastModifiedBy Organization Detail LastModifiedTime 12/23/1912/22/2022 URINE HCG QUAL/ POINT OF CARE ur preg NEGATI VE TESTI NG PERFO RMED BY SURGI JENNIFER SERVI PAUL PERSO NNEL. Not Available [facility] (Lab) [address] [place], [address], 12/22/2022 10:30:14 12/23/1912/22/2022 URINE HCG QUAL/ POINT OF CARE lot no. [id number] Not Available [facility] (Lab) [address] [place], [address], 12/22/2022 10:30:14 12/23/19 23 12/22/2022 URINE HCG QUAL/ POINT OF CARE pos QC POSITI VE Not Available [facility] (Lab) [address] [place], [address], 12/22/2022 10:30:14 12/23/19 23 12/22/2022 URINE HCG QUAL/ POINT OF CARE neg QC NEGATI VE Not Available [facility] (Lab) [address] [facility], [place], [address], 12/22/2022 10:30:14 04/18/20 23 04/17/2023 XR, knee, 3 view No observ ation record ed. [email or web address] Not Available 03/26 15:20:42 05/29/20 24 05/28/2024 XR, knee, 3 view No observ ation record ed. [email or web address] Not Available 10/2023 12:20:40 Result Notes None recorded. Problems Name Problem SNOMED Code Status Onset Date Resolution Date Notes Provider Name and Address Organization Details Recorded Time Plantar fasciitis of left foot 3273352576652 9101 Active 2022 Not Available [facility] 3 20:01:16 Plantar fasciitis of right foot 8734054555393 9101 Active 2019 Not Available [facility] 3 20:01:16 Strain of peroneal tendon 145592551 Active 2019 Not Available [facility] 3 20:01:16 Postoperat deven visit 786614163 Active 2022 Aldair Staton DPM [address] [facility], [facility] [address], [place], [address] , [facility] 3 16:27:59 Pain of left knee joint 6975150115307 07 Active 2022 YAMIL Amin, [facility] 3 14:50:46 Problem Notes None recorded. Procedures Surgical History Date Name Laterality Status Provider Name and Address Organization Details Recorded Time 4 Ortho - Cortisone Injection completed Payton Rivera NP [address] [facility], [address], [place], [address], [facility] 06/02/2024 12:26:13 3 Plantar Fascia Injection Left Foot completed Aldair Staton DPM [address], [address], [place], [address], [facility] [employer] [facility] 01/25/2023 17:28:46 3 Suture Removal completed Aldair Staton DPM [address], [address], [place], [address], [facility] [employer] [facility] 01/11/2023 16:04:46 Imaging Results Imaging Date Name Status LastModified by Organiz ation Details LastModified Time 04/17/2023 XR, knee, 3 view completed Information not available 04/18/2023 15:20:42 05/28/2024 XR, knee, 3 view completed Information not available 05/29/2024 12:20:40 Procedure Notes None recorded. Medical Equipment None Reported. Allergies Allergen ID Allergen Name Allergen Category Reaction Reaction Severity Criticality Documentation Date Start Date Code Code System Note Provider Name and Address Organization Details Recorded Time 20354 acetamino phen / oxycodone medicatio n hives mild Not available 08/23/2022 00862 3 RxNorm Possi ble react ion Not Available [facility] 3 20:02:07 02560 clindamyc in Not available hives moderate Not available 08/23/20222019 2582 RxNorm Not Available [facility] 3 20:02:07 Medications Name Sig Start Date Stop Date Status Note LastModified by Organization Details LastModified Time cyclobenzap rine 10 mg tablet TAKE 1/2 TO 1 TABLET BY MOUTH TWICE DAILY 06/02 completed Not Available Not Available Not Available amoxicillin 500 mg capsule TAKE ONE CAPSULE BY MOUTH EVERY 6 HOURS 05/03 completed Not Available Not Available Not Available clindamycin HCl 300 mg capsule 05/24 completed Not Available Not Available Not Available cetirizine 10 mg tablet TAKE 1 TABLET BY MOUTH EVERY DAY 06/02 completed Not Available Not Available Not Available azithromyci n 250 mg tablet TAKE 2 TABLETS BY MOUTH ON DAY 1 THEN TAKE 1 TABLET BY MOUTH EVERY DAY X 4 DAYS 05/03 completed Not Available Not Available Not Available ibuprofen 800 mg tablet TAKE 1 TABLET BY MOUTH EVERY 6-8 HOURS NEEDED 06/02 completed Not Available Not Available Not Available fluconazole 150 mg tablet TAKE 1 TABLET NOW AND 1 TABLET 72 HOURS LATER 06/02 completed Not Available Not Available Not Available meloxicam 15 mg tablet Take 1 tablet every day by oral route with meals for 30 days. 05/03 completed Not Available Not Available Not Available bupivacaine HCl 0.5 % (5 mg/mL) injection solution Take 4 mL by injection route. 2023 active Not Available Not Available Not Avai lable Mobic 7.5 mg tablet Take 1 tablet twice a day by oral route as needed for 30 days. 08/18 completed Not Available Not Available Not Available ciprofloxac in 500 mg tablet TAKE 1 TABLET BY MOUTH TWICE DAILY 05/03 completed Not Available Not Available Not Available tramadol 50 mg tablet TAKE 2 TABLETS BY MOUTH EVERY 6 HOURS NEEDED FOR PAIN ON A SCALE OF 4-6 05/03 completed Not Available Not Available Not Available acetaminoph en 500 mg tablet TAKE 1 TABLET BY MOUTH TWICE DAILY active Not Available Not Available No t Available amoxicillin 500 mg tablet TAKE 1 TABLET BY MOUTH THREE TIMES DAILY UNTIL GONE 06/02 completed Not Available Not Available Not Available Depo-Medrol 80 mg/mL suspension for injection in office procedure , administe red by provider 06/02 completed Not Available Not Available Not Available pantoprazol e 20 mg tablet,sea yed release TAKE 1 TABLET BY MOUTH EVERY DAY AROUND THE CLOCK 06/02 completed Not Available Not Available Not Available oxycodone-a cetaminophe n 5 mg-325 mg tablet TAKE 1 TABLET BY MOUTH EVERY 6 HOURS NEEDED FOR MODERATE PAIN (4 6 ON PAIN SCALE) 05/24 completed Not Available Not Available Not Available famotidine 20 mg tablet TAKE 1 TABLET BY MOUTH EVERY 12 HOURS FOR 10 DAYS 06/02 completed Not Available Not Available Not Available Kenalog 10 mg/mL suspension for injection Take 1 mL by injection route. 2023 active [facility]: 0003- 0494- 20 Not Available Not Available Not Available benzonatate 100 mg capsule TAKE 1 CAPSULE BY MOUTH THREE TIMES DAILY FOR 5 DAYS NEEDED 06/02 completed Not Available Not Available Not Available pantoprazol e 40 mg tablet,sea yed release TAKE 1 TABLET BY MOUTH EVERY DAY active Not Available Not Available No t Available oseltamivir 75 mg capsule TAKE 1 CAPSULE BY MOUTH TWICE DAILY FOR 5 DAYS DIRECTED 06/02 completed Not Available Not Available Not Available triamcinolo ne acetonide 0.1 % topical ointment APPLY THIN LAYER TOPICALLY TO THE AFFECTED AREA TWICE DAILY 06/02 completed Not Available Not Available Not Available promethazin e 25 mg tablet 04/29 completed Not Available Not Available Not Available ibuprofen 400 mg tablet TAKE 1 TABLET BY MOUTH THREE TIMES A DAY 05/03 completed Not Available Not Available Not Available metoclopram david 10 mg tablet TAKE 1 TABLET BY MOUTH EVERY 6 HOURS 30 MINUTES BEFORE MEALS AND AT BEDTIME 06/02 completed Not Available Not Available Not Available Arthritis Pain Relief (acetaminop hen) ER 650 mg tablet,exte nd release TAKE 2 TABLETS BY MOUTH EVERY 8 HOURS NEEDED FOR 10 DAYS 04/29 completed Not Available Not Available Not Available nitrofurant oin monohydrate /macrocryst als 100 mg capsule TAKE 1 CAPSULE BY MOUTH EVERY 12 HOURS 06/02 completed Not Available Not Available Not Available peg 3350-electr olytes 236 gram-22.74 gram-6.74 gram-5.86 gram solution 05/03 completed Not Available Not Available Not Available ropivacaine (PF) 5 mg/mL (0.5 %) injection solution in office procedure , administe red by provider 06/02 completed [facility] 50738 -064- 01 Not Available Not Available Not Available Stimulant Laxative Plus 8.6 mg-50 mg tablet TAKE 2 TABLETS BY MOUTH EVERY DAY NEEDED FOR 10 DAYS FOR CONSTIPAT ION 06/02 completed Not Available Not Available Not Available Proctosol HC 2.5 % topical cream perineal applicator APPLY A THIN LAYER TO THE AFFECTED AREA(S) TWICE A DAY 04/29 completed Not Available Not Available Not Available Vitals Date Recorded Body height Body mass index (BMI) Body weight Heart rate Respiratory rate Oxygen saturation Oxygen saturation in Arterial blood by Pulse oximetry Systolic blood pressure Diastolic blood pressure Provider Name and Address Organization Details Last Updated DateTime 3 160.02 cm 26.6 kg/m2 27747.8 6 g 82 /min 14 /min 99 % 99 % 106 mm[Hg] 67 mm[Hg] Edda [facility] [employer] [facility] 3 16:04:38 Date Recorded Body height Body mass index (BMI) Body weight Heart rate Respiratory rate Oxygen saturation Oxygen saturation in Arterial blood by Pulse oximetry Systolic blood pressure Diastolic blood pressure Provider Name and Address Organization Details Last Updated DateTime 3 160.02 cm 26.6 kg/m2 26947.8 6 g 95 /min 14 /min 98 % 98 % 115 mm[Hg] 75 mm[Hg] Edda [facility] [employer] [facility] 3 16:30:47 Date Recorded Body height Body mass index (BMI) Body weight Heart rate Respiratory rate Oxygen saturation Oxygen saturation in Arterial blood by Pulse oximetry Systolic blood pressure Diastolic blood pressure Provider Name and Address Organization Details Last Updated DateTime 3 160.02 cm 26.6 kg/m2 78413.8 6 g 85 /min 14 /min 99 % 99 % 126 mm[Hg] 75 mm[Hg] Edda [facility] [employer] [facility] 3 17:38:02 Date Recorded Body height Body mass index (BMI) Body weight Provider Name and Address Organization Details Last Updated DateTime 05/03/2023 157.48 cm 28.2 kg/m2 92070.22 g Sharda Reji [facility] [employer] [facility] 05/03/2023 14:58:24 Date Recorded Body height Body mass index (BMI) Body weight Pain severity - 0-10 verbal numeric rating [Score] - Reported Provider Name and Address Organization Details Last Updated DateTime 06/02/2024 160.02 cm 26.9 kg/m2 78445.04 g Suzie Alejandre [facility] [employer] [facility] 06/02/2024 11:43:28 Social History None recorded. Functional Status None recorded. Mental Status None recorded. Family History Relationship Description Onset Age of this Age Resolved Age Notes LastModified by Organization Details LastModified Time Mother Hypertensive disorder [email or web address] Not available 12/23 15:49:34 Mother Family history of malignant neoplasm [email or web address] Not available 2022 14:49:29 Mother Diabetes mellitus [email or web address] Not available 2022 14:49:57 Medical History Condition Response URINARY/BLADDER/KIDNEY PROBLEMS Y HAVE YOU BEEN HOSPITALIZED OR SEEN IN [facility] ER IN THE PAST YEAR ? Y HEPATITIS / LIVER DISEASE Y Gynecological HistoryNo gynecological history recorded. Obstetrics History GPAL:G 0 P 0 0 0 0 Past Encounters Encounter ID Performer Location Encounter Start Date Encounter Closed Date Diagnosis/Indication Diagnosis SNOMED-CT Code Diagnosis ICD10 Code Diagnosis Note [id number] [facility] [address] [facility], [facility] [address] [place] [address] 07/18/2022 00:00:00 07/19/2022 12:29:07 [id number] Aldair Staton DPM [facility] [address] [facility], [facility] [address] [place] [address] 09/12/2022 17:12:31 09/14/2022 11:34:01 Plantar fasciitis of left foot 0948360320 5158424 M72.2 Reviewed options with the patientObt ain surgical clearanceP atient will be out of the country and will return for surgery post medication sIf patient obtain surgical clearance and surgery before 09-12 we will not need any follow-upa ll risks, benefits, complicati ons were reviewed with the patient to her complete full understand ing. no guarantees were given or implied. patient understand s all of her possible risks and elects to continue with the planned procedure of endoscopic plantar fasciotomy of the left foot. [id number] GABINO [facility]ine[facility] [address] [facility], [address] [address] 12/05/2022 08:55:57 12/05/2022 11:33:54 Plantar fasciitis of left foot 5852245497 6951811 M72.2 Reviewed options with the patientSur gical clearance reviewedpl an for surgery on December 22pati t directed to stop anti-infla mmatories 7 days prior to surgerypla nned endoscopic plantar fasciotomy of the left footall risks, benefits, complicati ons were reviewed with the patient to her complete full understand ing. no guarantees were given or implied. patient understand s all of her possible risks and elects to continue with the planned procedure of endoscopic plantar fasciotomy of the left foot. [id number] Aldair Staton DPM [facility] [address] [place] [address] 01/01/2023 15:42:45 01/01/2023 16:33:43 Postoperative visit 643894240 Z09 left foot endoscopic plantar fasciotomy Dressings clean and bandages appliedcha nge dressings daily with topical antibiotic ointment and bandNo soaking, may showerfoll [facility] for [facility] [id number] Aldair Staton DPM [facility] [address], [address] [address] 01/11/2023 15:55:52 01/11/2023 16:39:36 Postoperative visit 187353055 Z09 left foot endoscopic plantar fasciotomy sutures removedCon tinue stretching exercisesR ice therapyFol low-up in 2 weeksconti nue supportive shoe gearcontin ue no work if not improved in 2 weeks will send to physical therapy [id number] Aldair Staton DPM [facility] [address], [address] [address] 01/25/2023 16:26:35 01/25/2023 17:46:45 Postoperative visit 402943529 Z09 left foot endoscopic plantar fasciotomy Steroid injection todayRx physical therapy for 3 weeksFollo w-up in 3 weeks at that time will release to return to work [id number] Aldair Staton DPM Stacey[facility] [address], [address] [address] 02/20/2023 17:23:47 02/20/2023 18:08:22 Postoperative visit 057709243 Z09 left foot endoscopic plantar fasciotomy continue stretching and supportive shoe gearrecomm end orthotics [employer] Pro Techfollow -up as neededFull work release granted today [id number] Ze Paula MD [facility] [address] [place] [address] 05/03/2023 14:20:38 05/07/2023 10:55:08 Pain of left knee joint 9259643819 79939 M25.740 [id number] Payton JulissaBRIAN sheikh [facility] [address] [place] [address] 06/02/2024 11:29:28 06/02/2024 12:14:03 Pain of left knee joint 2583835888 62213 M25.562 Health Concerns Section Related Observation LastModified by Organization Detai ls LastModified Time None Recorded Concern Status LastModified by Organization Details LastModified Time None Recorded Advance Directives Directive None Recorded Payers Encounter Date Sequence Insurance Name Policy Number Policy Small Covered Member ID Small Member ID Guarantor Name 01/11/[address] [facility] [id number] Norm[facility]orm[id number] [facility] 01/25/[address] [facility] [id number] Norma Mccormack [id number] Norma Mccormack 02/20/[address] [facility] [id number] Norma Mccormack [id number] Norma Mccormack 05/03/[address] [facility] [id number] Norma Mccormack [id number] Norma Mccormack 06/02/[address] [facility] [id number] Norma Mccormack [id number] Norma Mccormack Notes Date Note Type Note Provider Name and Address Organization Details Recorded Time 01/11/2023 text/html . Patient is a 42-year-old female who returns the office status post endoscopic plantar foot osteotomy. Patient is doing very well denies any signs of infection. Patient states that she does have pain with weight-bearing. Patient states that she is unable to return to work due to the discomfort with standing. Patient states she is improving and the pain is reducing. Patient denies any open wounds or signs of infection. Patient is here for suture removal. Patient denies any other complaints. Aldair Staton DPM [address] [facility], [facility] [address], [place], [address], [facility] [employer] 01/11/2023 16:32:57 01/25/2023 text/html . Patient is a 42-year-old female who returns the office for follow-up on plantar fasciotomy of the left foot. Patient states she is overall doing well but has some continued mild pain when standing. Patient states she has no pain when at rest. Patient denies any signs of infection. Patient denies any other complaints. Aldair Staton DPM [address], [place], [address], [facility] [employer] 01/25/2023 17:29:06 02/20/2023 text/html . Patient is a 42-year-old female who returns the office for follow-up on endoscopic plantar fasciotomy. Patient states that she is no longer any pain and has returned to normal shoe gear. Patient denies any signs of infection. Patient denies any other pedal complaints. Aldair Staton DPM [address], [address], [place], [address], [facility] [employer] 02/20/2023 18:01:15 05/03/2023 text/html patient is a 42-year-old female who noticed that she had pain in the Left knee while trying to heal in [place] primarily around the kneecap but also in the back of the knee and medial aspect of the knee. she has tried a little bit of ibuprofen and estimates she has taken on average about 3 doses per week. She has been told previously that she should avoid nonsteroidal anti-inflammatory medications and keep ibuprofen to a minimum because she does have a history of some liver problem. Occasionally she has pain night and the knee is painful in the morning in particular and it bothers her at work sometimes. 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 She has no history of prior problems with her knee. Times seems to lock. Going up and down stairs is difficult. X-rays at [facility] from 04/17/2023 showed no abnormalities 5 radiographic views left knee. I reviewed the radiologist's report and the images. eZ Paula MD [address], [address], [place], [id number], [facility] [employer] 05/07/2023 09:32:42 OBGyn Episode No OBEpisode recorded.
--- OUTSIDE RECORDS SUMMARY | 2024-10-07 16:33 | XMS_ITS | Data Portability ---
[facility] Address [address] [place] [address] Care Team Providers Care Military Personnel Specialist Name Role Phone ELMO VILLALOBOS Primary Care Provider VIRGILIO Funes Photographer'S Assistant ELMO VILLALOBOS Health Center Manager [phone] UMA SZYMANSKI Photographer'S Assistant Assessment Encounter Date Assessment Date Assessment LastModified by Organization Details LastModified Time 08/09/2023 08/09/2023 This unfortunate lady was admitted to two different hospitals with pancreatitis of unknown cause and gastritis. She should resume her Pantoprazole and avoid any foods that trigger her symptoms. oajao Not available 08/09/2023 16:50:04 08/30/2023 08/30/2023 This unfortunate lady was admitted to two different hospitals with pancreatitis of unknown cause and gastritis. She is still having abdominal and back pain despite a modified diet and compliance with her Pantoprazole, she needs a repeat CT scan and labs. oajao Not available 08/30/2023 14:20:14 10/04/2023 10/04/2023 Her abdominal pain is probably multifactorial, she has had recent pancreatitis of unknown cause and gastritis. She has had a recent EGD, MRCP and the CT scan was normal except for constipation oajao Not available 10/04/2023 16:47:48 Plan of Treatment Reminders Order Date Submit Date Provider Last Modified By Organization Details Last Modified Time Details Appointments ACUTE 15 2024 10:00A Marina Monreal MD Not available Not available Not available ANY 30 2024 02:15P M Rodo Monreal MD Not available Not available Not available Lab CMP, serum or plasma 2024 [facility], [address], [place], [address], 10/07/2024 11:10:56 urinalysi s macro (dipstick ) panel, urine 2024 [facility], [address], [place], [address], 10/07/2024 11:10:56 lipid panel, serum 2024 [facility], [address], [place], [address], 10/07/2024 11:10:[address] [facility], [address], [place], [address], 10/07/2024 11:10:57 vitamin D, 25-hydrox y, total, serum 2024 [facility], [address], [place], [address], 10/07/2024 11:10:56 rapid strep group A, throat 2024 [facility] In-Office Order, Internal Use Only DO Not Attach Compendium DO Not Attach Compendium, Do Not Delete/merge, [id number] 10/07/2024 12:48:20 influenza virus A + B + SARS-CoV- 2 (COVID19) Ag panel, rapid IA, upper respirato ry specimen 2024 [facility] (Lab), [address], [place], [address], 10/07/2024 12:15:20 TSH, ultra-sen sitive, serum 2024 025 [facility], [address], [place], [address], 10/07/2024 11:28:47 vitamin B12, serum 2024 025 [facility] [address], [place], [address], 10/07/2024 11:28:47 rf (rheumato id factor) + anti-ccp abs, serum [address] [facility], [address], [place], [address], 10/07/2024 11:26:54 HbA1c (hemoglob in A1c), blood [address] [facility], [address], [place], [address], 10/07/2024 11:11:53 CBC w/ auto diff [address] [facility], [address], [place], [address], 08/31/2023 08:28:23 lipase, serum or plasma 2023 024 [facility] [address], [place], [address], 08/31/2023 08:28:22 CMP, serum or plasma [address] [facility], [address], [place], [address], 08/31/2023 08:28:21 influenza virus A + B and SARS CoV 2, QL, CAMILLE+probe , respirato ry specimen 2023 024 [facility], [address] [place], [address], 08/16/2023 19:24:26 rapid strep group A, throat 2023 024 [facility] In-Office Order, Internal Use Only DO Not Attach Compendium DO Not Attach Compendium, Do Not Delete/merge, [id number] 08/17/2023 11:28:52 alkaline phosphata se, bone-spec ific, serum 2023 024 [facility], [address], [place], [address], 08/14/2023 06:15:36 hepatic function panel, serum 2023 024 [facility], [address], [place], [address], 08/14/2023 06:15:36 Referral gastroent erologist referral - Abdominal and back pain, recent Pancreati tis and Gastritis 2023 024 [facility] Davies MD, [address] [facility], [address], [place], [address], 01/08/2024 10:58:36 Procedures None recorded. Surgeries None recorded. Imaging MAMMO, screening , bilateral 2024 025 [facility] (Mammography) , [address], [place], [address], 10/07/2024 11:50:29 XR, hip + pelvis, bilateral - Pain 2024 025 [facility] (Imaging), [address], [place], [address], 10/07/2024 11:50:30 XR, lumbosacr al spine, 2 or 3 view - Pain 2024 025 [facility] (Imaging), [address], [place], [address], 10/07/2024 12:00:46 CT, abdomen + pelvis, w/ contrast - Abdominal and back pain, recent pancreati tis 2023 [facility] (Admitting), [address], [place], [address], 08/30/2023 13:48:23 Medication Orders Senna with Docusate Sodium 8.6 mg-50 mg tablet 2023 [id number], [address], [place], [place], [id number], 10/07/2024 10:57:26 benzonata te 100 mg capsule 2023 [facility] #74159, [address], [place], [place], [id number], 08/30/2023 10:58:59 pseudoeph edrine 60 mg tablet 2023 024 [facility][id number], [address], [place], [place], [id number], 08/30/2023 10:59:35 pantopraz ole 40 mg tablet,de layed release 2023 024 [facility][id number], [address], [place], [place], [id number], 08/30/2023 11:13:33 Protonix 40 mg tablet,de layed release 2023 024 [facility] #[id number], [address], [place], [place], [id number], 08/30/2023 11:13:33 Patient TargetsNo targets recorded. Patient Instructions Encounter Date Encounter Id Patient Instructions Last Modified By Organization Details Last Modified Time 08/09/2023 [id number] enfermedad de reflujo gastroesof gico (GERD): instrucciones de cuidado - [gastroesophageal reflux disease (GERD): care instructions] oajao Not available 08/09/2023 14:50:57 MRCP report from [facility], please Labs Restart Protonix Breast US as previously ordered Follow up in 4 weeks oajao Not available 08/09/2023 16:50:54 Discussed oajao Not available 2023 16:51:04 08/16/2023 [id number] Labs Tessalon perles as needed for her cough Pseudoephedrine as needed for her congestion Tylenol Fluids oajao Not available 08/16/2023 16:41:37 08/30/2023 [id number] dolor abdominal: instrucciones de cuidado - [abdominal pain: care instructions] oajao Not available 08/30/2023 11:28:36 CT scan STAT Lab s MRCP report from [facility] GI at a ER if her symptoms worsen Breast US as previously ordered oajao Not available 08/30/2023 14:20:48 10/04/2023 [id number] EGD and colonosc opy reports from Dr Ana Tiwari Fiber Senna/DSS PRN GI as referred Follow up in 6 months oajao Not available 10/04/2023 16:48:21 Pt education on constipation oajao Not available 10/04/2023 16:48:42 10/07/2024 [id number] mamograf a: sobre esta prueba - [mammogram: about this test] oajao Not available 10/07/2024 11:09:03 dolor de gargant a: instrucciones de cuidado - [sore throat: care instructions] oajao Not available 10/07/2024 11:24:35 fatiga: instrucciones de cuidado - [fatigue: care instructions] oajao Not available 10/07/2024 11:28:30 aprenda acerca d el peso saludable - [learning about healthy weight] oajao Not available 10/07/2024 11:11:48 Labs TOW for tod ay and tomorrow Xrays MMG Follow up in 4-6 weeks oajao Not available 10/07/2024 11:40:15 Reason for Referral Photographer'S Assistant Referral for History of pancreatitis Abdominal and back pain, recent Pancreatitis and Gastritis Abdominal and back pain, recent Pancreatitis and Gastritis Referring Physician: Rodo Monreal, Internal Medicine, Encounter Date: 08/30/2023 Results Created Date Observation Date Name Description Value Unit Range Abnormal Flag Note LastModifiedBy Organization Detail LastModifiedTime 08/02/19 24 08/02/2023 LIPID PANEL cholesterol, total 147 mg/dL 100-19 9 Not Available [facility] Department [address] [place] [address], [address], 08/02/2023 20:09:51 08/02/19 24 08/02/2023 LIPID PANEL triglyceride s 291 mg/dL 0-149 above high normal Not Available [facility] Department [address] [place] [address], [address], 08/02/2023 20:09:51 08/02/19 24 08/02/2023 LIPID PANEL HDL cholesterol 27 mg/dL 40-999 below low normal Not Available [facility] Department [address] [place], [address], 08/02/2023 20:09:51 08/02/19 24 08/02/2023 LIPID PANEL VLDL cholesterol yimi 58 mg/dL 5-40 above high normal Not Available [facility] Department [address] [place], [address], 08/02/2023 20:09:51 08/02/19 24 08/02/2023 LIPID PANEL LDL chol calc (nih) 108 mg/dL 0-99 above high normal Not Available [facility] Department [address] [place], [address], 08/02/2023 20:09:51 08/02/19 24 08/02/2023 COMP. METAB OLIC PANEL (14) glucose 82 mg/dL 70-99 Not Available [facility] Department [address] [place], [address], 08/02/2023 20:09:52 08/02/19 24 08/02/2023 COMP. METAB OLIC PANEL (14) BUN 8 mg/dL 6-24 Not Available [facility] Department [address] [place], [address], 08/02/2023 20:09:52 08/02/19 24 08/02/2023 COMP. METAB OLIC PANEL (14) creatinine 0.70 mg/dL 0.76-1 .27 below low normal Not Available [facility] Department [address] [place], [address], 08/02/2023 20:09:52 08/02/19 24 08/02/2023 COMP. METAB OLIC PANEL (14) eGFR 110 >=60 Units for eGFR value s are mL/mi n/1.7 3 The eGFR Calcu latio n has not been valid ated for patie nts under the age of 18. If test resul ts are displ ayed for a patie nt under the age of 18, disre shay that value . Not Available [facility] Department [address] [place] [address], [address], 08/02/2023 20:09:52 08/02/19 24 08/02/2023 COMP. METAB OLIC PANEL (14) BUN/creatini ne ratio 12 9-23 Not Available [facility] Department [address] [place] [address], [address], 08/02/2023 20:09:52 08/02/19 24 08/02/2023 COMP. METAB OLIC PANEL (14) sodium 139 mmol/ L 134-14 4 Not Available [facility] Department [address] [place], [address], 08/02/2023 20:09:52 08/02/19 24 08/02/2023 COMP. METAB OLIC PANEL (14) potassium 4.6 mmol/ L 3.5-5. 2 Not Available [facility] Department [address] [place] [address], [address], 08/02/2023 20:09:52 08/02/19 24 08/02/2023 COMP. METAB OLIC PANEL (14) chloride 100 mmol/ L 96-106 Not Available [facility] Department [address] [place] [address], [address], 08/02/2023 20:09:52 08/02/19 24 08/02/2023 COMP. METAB OLIC PANEL (14) carbon dioxide, total 27 mmol/ L 20-29 Not Available [facility] Department [address] [place], [address], 08/02/2023 20:09:52 08/02/19 24 08/02/2023 COMP. METAB OLIC PANEL (14) calcium 9.8 mg/dL 8.7-10 .2 Not Available [facility] Department [address] [place] [address], [address], 08/02/2023 20:09:52 08/02/19 24 08/02/2023 COMP. METAB OLIC PANEL (14) protein, total 7.0 g/dL 6.0-8. 5 Not Available [facility] Department [address] [place], [address], 08/02/2023 20:09:52 08/02/19 24 08/02/2023 COMP. METAB OLIC PANEL (14) albumin 4.4 g/dL 3.9-4. 9 Not Available [facility] Department [address] [place] [address], [address], 08/02/2023 20:09:52 08/02/19 24 08/02/2023 COMP. METAB OLIC PANEL (14) globulin, total 2.6 g/dL 1.5-4. 5 Not Available [facility] Department [address] [place], [address], 08/02/2023 20:09:52 08/02/19 24 08/02/2023 COMP. METAB OLIC PANEL (14) A/G ratio 2.0 1.2-2. 2 Not Available [facility] Department [address] [place], [address], 08/02/2023 20:09:52 08/02/19 24 08/02/2023 COMP. METAB OLIC PANEL (14) bilirubin, total 0.2 mg/dL 0.0-1. 2 Not Available [facility] Department [address] [place], [address], 08/02/2023 20:09:52 08/02/19 24 08/02/2023 COMP. METAB OLIC PANEL (14) alkaline phosphatase 123 IU/L 44-121 above high normal Not Available [facility] Department [address] [place] [address], [address], 08/02/2023 20:09:52 08/02/19 24 08/02/2023 COMP. METAB OLIC PANEL (14) AST (SGOT) 20 IU/L 0-40 Not Available [facility] Department [address] [place] [address], [address], 08/02/2023 20:09:52 08/02/19 24 08/02/2023 COMP. METAB OLIC PANEL (14) ALT (SGPT) 25 IU/L 0-32 Not Available [facility] Department [address] [place] [address], [address], 08/02/2023 20:09:52 08/02/19 24 08/02/2023 CBC WITH DIFFE RENTI AL/PL ATELE T WBC 6.3 x10e3 /uL 3.4-10 .8 Not Available [facility] Department [address] [place] [address], [address], 08/02/2023 20:09:53 08/02/19 24 08/02/2023 CBC WITH DIFFE RENTI AL/PL ATELE T RBC 4.91 x10e6 /uL 3.77-5 .28 Not Available [facility] Department [address] [place] [address], [address], 08/02/2023 20:09:53 08/02/19 24 08/02/2023 CBC WITH DIFFE RENTI AL/PL ATELE T hemoglobin 14.2 g/dL 11.1-1 5.9 Not Available [facility] Department [address] [place], [address], 08/02/2023 20:09:53 08/02/19 24 08/02/2023 CBC WITH DIFFE RENTI AL/PL ATELE T hematocrit 44.9 % 34.0-4 6.6 Not Available [facility] Department [address] [place], [address], 08/02/2023 20:09:53 08/02/19 24 08/02/2023 CBC WITH DIFFE RENTI AL/PL ATELE T MCV 91 fL 79-97 Not Available [facility] Department [address] [place], [address], 08/02/2023 20:09:53 08/02/19 24 08/02/2023 CBC WITH DIFFE RENTI AL/PL ATELE T MCH 28.9 pg 26.6-3 3.0 Not Available [facility] Department [address] [place], [address], 08/02/2023 20:09:53 08/02/19 24 08/02/2023 CBC WITH DIFFE RENTI AL/PL ATELE T MCHC 31.6 g/dL 31.5-3 5.7 Not Available [facility] Department [address] [place], [address], 08/02/2023 20:09:53 08/02/19 24 08/02/2023 CBC WITH DIFFE RENTI AL/PL ATELE T RDW 12.3 % 11.5-1 4.5 Not Available [facility] Department [address] [place], [address], 08/02/2023 20:09:53 08/02/19 24 08/02/2023 CBC WITH DIFFE RENTI AL/PL ATELE T platelets 281 x10e3 /uL 150-45 0 Not Available [facility] Department [address] [place], [address], 08/02/2023 20:09:53 08/02/19 24 08/02/2023 CBC WITH DIFFE RENTI AL/PL ATELE T neutrophils 57 % notest b. Not Available [facility] Department [address] [place], [address], 08/02/2023 20:09:53 08/02/19 24 08/02/2023 CBC WITH DIFFE RENTI AL/PL ATELE T lymphs 27 % notest b. Not Available [facility] Department [address] [place], [address], 08/02/2023 20:09:53 08/02/19 24 08/02/2023 CBC WITH DIFFE RENTI AL/PL ATELE T monocytes 6 % notest b. Not Available [facility] Department [address] [place] [address], [address], 08/02/2023 20:09:53 08/02/19 24 08/02/2023 CBC WITH DIFFE RENTI AL/PL ATELE T eos 9 % notest b. Not Available [facility] Department [address] [place], [address], 08/02/2023 20:09:53 08/02/19 24 08/02/2023 CBC WITH DIFFE RENTI AL/PL ATELE T basos 1 % notest b. Not Available [facility] Department [address] [place], [address], 08/02/2023 20:09:53 08/02/19 24 08/02/2023 CBC WITH DIFFE RENTI AL/PL ATELE T neutrophils (absolute) 3.6 x10e3 /uL 1.4-7. 0 Not Available [facility] Department [address] [place], [address], 08/02/2023 20:09:53 08/02/19 24 08/02/2023 CBC WITH DIFFE RENTI AL/PL ATELE T lymphs (absolute) 1.7 x10e3 /uL 0.7-3. 1 Not Available [facility] Department [address] [place], [address], 08/02/2023 20:09:53 08/02/19 24 08/02/2023 CBC WITH DIFFE RENTI AL/PL ATELE T monocytes(ab solute) 0.4 x10e3 /uL 0.1-0. 9 Not Available [facility] Department [address] [place], [address], 08/02/2023 20:09:53 08/02/19 24 08/02/2023 CBC WITH DIFFE RENTI AL/PL ATELE T eos (absolute) 0.6 x10e3 /uL 0.0-0. 4 above high normal Not Available [facility] Department [address] [place], [address], 08/02/2023 20:09:53 08/02/19 24 08/02/2023 CBC WITH DIFFE RENTI AL/PL ATELE T baso (absolute) 0.1 x10e3 /uL 0.0-0. 2 Not Available [facility] Department [address] [place], [address], 08/02/2023 20:09:53 08/02/19 24 08/02/2023 CBC WITH DIFFE RENTI AL/PL ATELE T immature granulocytes 0.5 % notest b. Not Available [facility] Department [address] [place], [address], 08/02/2023 20:09:53 08/02/19 24 08/02/2023 CBC WITH DIFFE RENTI AL/PL ATELE T immature grans (abs) 0.0 x10e3 /uL 0.0-0. 1 Not Available [facility] Department [address] [place], [address], 08/02/2023 20:09:53 08/02/19 24 08/02/2023 CBC WITH DIFFE RENTI AL/PL ATELE T NRBC 0 % 0-0 Not Available [facility] [address], [place], [address], 08/02/2023 20:09:53 08/02/19 24 08/03/2023 LIPAS E lipase 47 U/L 14-72 Not Available [facility] ([facility]) [address] [facility], [place], [address], 08/03/2023 06:20:48 08/09/19 24 08/10/2023 HEPAT IC FUNCT ION PANEL (7) protein, total 6.9 g/dL 6.0-8. 5 Not Available [facility] ([facility]) [address] [place], [address], 08/14/2023 06:15:36 08/09/19 24 08/10/2023 HEPAT IC FUNCT ION PANEL (7) albumin 4.3 g/dL 3.9-4. 9 Not Available [facility] ([facility]) [address] [place], [address], 08/14/2023 06:15:36 08/09/19 24 08/10/2023 HEPAT IC FUNCT ION PANEL (7) bilirubin, total 0.2 mg/dL 0.0-1. 2 Not Available [facility] ([facility]) [address] [place], [address], 08/14/2023 06:15:36 08/09/19 24 08/10/2023 HEPAT IC FUNCT ION PANEL (7) bilirubin, direct <0.10 mg/dL 0.00-0 .40 Not Available [facility] ([facility]) [address] [place], [address], 08/14/2023 06:15:36 08/09/19 24 08/10/2023 HEPAT IC FUNCT ION PANEL (7) alkaline phosphatase 117 IU/L 44-121 Not Available [facility]) [address] [place], [address], 08/14/2023 06:15:36 08/09/19 24 08/10/2023 HEPAT IC FUNCT ION PANEL (7) AST (SGOT) 22 IU/L 0-40 Not Available [facility] ([facility]) [address] [place], [address], 08/14/2023 06:15:36 08/09/19 24 08/10/2023 HEPAT IC FUNCT ION PANEL (7) ALT (SGPT) 21 IU/L 0-32 Not Available [facility] ([facility]) [address] [place], [address], 08/14/2023 06:15:36 08/09/19 24 08/13/2023 ALK PHOSP HATAS E, BONE SPECI FIC alk phosphatase, bone specific 17.0 ug/L Preme nopau kristian Women : 6.0 - 22.7 Postm enopa usal Women : 8.1 - 31.6 Not Available [facility] ([facility]) [address] [place], [address], 08/14/2023 06:15:36 08/09/19 24 08/14/2023 ALK PHOSP HATAS E, BONE SPECI FIC pdf . Not Available [facility] ([facility]) [address] [place], [address], 08/14/2023 06:15:36 08/17/19 24 08/17/2023 rapid strep group A, throa t Strep negati ve Not Available In-Office Order Internal Use Only DO Not Attach Compendium DO Not Attach Compendium, Do Not Delete/merge, [id number] 08/16/2023 16:35:02 08/30/19 24 08/31/2023 COMP. METAB OLIC PANEL (14) glucose 84 mg/dL 70-99 Not Available [facility] ([facility]) [address] [facility] [place], [address], 08/31/2023 08:28:21 08/30/19 24 08/31/2023 COMP. METAB OLIC PANEL (14) BUN 9 mg/dL 6-24 Not Available [facility] ([facility]) [address] [facility] [place], [address], 08/31/2023 08:28:21 08/30/19 24 08/31/2023 COMP. METAB OLIC PANEL (14) creatinine 0.62 mg/dL 0.57-1 .00 Not Available [facility] ([facility]) [address] [facility] [place], [address], 08/31/2023 08:28:21 08/30/19 24 08/31/2023 COMP. METAB OLIC PANEL (14) eGFR 113 mL/mi n/1.7 3 >59 Not Available [facility] ([facility]) [address] [facility] [place], [address], 08/31/2023 08:28:21 08/30/19 24 08/31/2023 COMP. METAB OLIC PANEL (14) BUN/creatini ne ratio 15 9-23 Not Available [facility]) [address] [facility] [place], [address], 08/31/2023 08:28:21 08/30/19 24 08/31/2023 COMP. METAB OLIC PANEL (14) sodium 139 mmol/ L 134-14 4 Not Available [facility] ([facility]) [address] [facility] [place], [address], 08/31/2023 08:28:21 08/30/19 24 08/31/2023 COMP. METAB OLIC PANEL (14) potassium 4.2 mmol/ L 3.5-5. 2 Not Available [facility] ([facility]) [address] [place], [address], 08/31/2023 08:28:21 08/30/19 24 08/31/2023 COMP. METAB OLIC PANEL (14) chloride 101 mmol/ L 96-106 Not Available [facility] ([facility]) [address] [facility], [place], [address], 08/31/2023 08:28:21 08/30/19 24 08/31/2023 COMP. METAB OLIC PANEL (14) carbon dioxide, total 24 mmol/ L 20-29 Not Available [facility] ([facility]) [address] [facility] [place], [address], 08/31/2023 08:28:21 08/30/19 24 08/31/2023 COMP. METAB OLIC PANEL (14) calcium 9.6 mg/dL 8.7-10 .2 Not Available [facility] ([facility]) [address] [facility], [place], [address], 08/31/2023 08:28:21 08/30/19 24 08/31/2023 COMP. METAB OLIC PANEL (14) protein, total 7.0 g/dL 6.0-8. 5 Not Available [facility] ([facility]) [address] [facility], [place], [address], 08/31/2023 08:28:21 08/30/19 24 08/31/2023 COMP. METAB OLIC PANEL (14) albumin 4.5 g/dL 3.9-4. 9 Not Available [facility] ([facility]) [address] [facility] [place], [address], 08/31/2023 08:28:21 08/30/19 24 08/31/2023 COMP. METAB OLIC PANEL (14) globulin, total 2.5 g/dL 1.5-4. 5 Not Available [facility] ([facility]) [address] [facility] [place], [address], 08/31/2023 08:28:21 08/30/19 24 08/31/2023 COMP. METAB OLIC PANEL (14) A/G ratio 1.8 1.2-2. 2 Not Available [facility] ([facility]) [address] [place], [address], 08/31/2023 08:28:21 08/30/19 24 08/31/2023 COMP. METAB OLIC PANEL (14) bilirubin, total <0.2 mg/dL 0.0-1. 2 Not Available [facility] ([facility]) [address] [facility], [place], [address], 08/31/2023 08:28:21 08/30/19 24 08/31/2023 COMP. METAB OLIC PANEL (14) alkaline phosphatase 102 IU/L 44-121 Not Available [facility] ([facility]) [address] [place], [address], 08/31/2023 08:28:21 08/30/19 24 08/31/2023 COMP. METAB OLIC PANEL (14) AST (SGOT) 20 IU/L 0-40 Not Available [facility] ([facility]) [address] [place], [address], 08/31/2023 08:28:21 08/30/19 24 08/31/2023 COMP. METAB OLIC PANEL (14) ALT (SGPT) 13 IU/L 0-32 Not Available [facility] ([facility]) [address] [place], [address], 08/31/2023 08:28:21 08/30/19 24 08/31/2023 LIPAS E lipase 48 U/L 14-72 Not Available [facility] ([facility]) [address] [place], [address], 08/31/2023 08:28:22 08/30/19 24 08/31/2023 CBC WITH DIFFE RENTI AL/PL ATELE T WBC 6.8 x10e3 /uL 3.4-10 .8 Not Available [facility] ([facility]) [address] [place], [address], 08/31/2023 08:28:23 08/30/19 24 08/31/2023 CBC WITH DIFFE RENTI AL/PL ATELE T RBC 4.48 x10e6 /uL 3.77-5 .28 Not Available [facility] ([facility]) [address] [place], [address], 08/31/2023 08:28:23 08/30/19 24 08/31/2023 CBC WITH DIFFE RENTI AL/PL ATELE T hemoglobin 13.3 g/dL 11.1-1 5.9 Not Available [facility] ([facility]) [address] [place], [address], 08/31/2023 08:28:23 08/30/19 24 08/31/2023 CBC WITH DIFFE RENTI AL/PL ATELE T hematocrit 40.2 % 34.0-4 6.6 Not Available [facility] ([facility]) [address] [place], [address], 08/31/2023 08:28:23 08/30/19 24 08/31/2023 CBC WITH DIFFE RENTI AL/PL ATELE T MCV 90 fL 79-97 Not Available [facility] ([facility]) [address] [place], [address], 08/31/2023 08:28:23 08/30/19 24 08/31/2023 CBC WITH DIFFE RENTI AL/PL ATELE T MCH 29.7 pg 26.6-3 3.0 Not Available [facility] ([facility]) [address] [place], [address], 08/31/2023 08:28:23 08/30/19 24 08/31/2023 CBC WITH DIFFE RENTI AL/PL ATELE T MCHC 33.1 g/dL 31.5-3 5.7 Not Available [facility] ([facility]) [address] [facility], [place], [address], 08/31/2023 08:28:23 08/30/19 24 08/31/2023 CBC WITH DIFFE RENTI AL/PL ATELE T RDW 12.6 % 11.7-1 5.4 Not Available [facility] ([facility]) [address] [facility], [place], [address], 08/31/2023 08:28:23 08/30/19 24 08/31/2023 CBC WITH DIFFE RENTI AL/PL ATELE T platelets 270 x10e3 /uL 150-45 0 Not Available [facility] ([facility]) [address] [facility], [place], [address], 08/31/2023 08:28:23 08/30/19 24 08/31/2023 CBC WITH DIFFE RENTI AL/PL ATELE T neutrophils 62 % notest ab. Not Available [facility] ([facility]) [address] [facility], [place], [address], 08/31/2023 08:28:23 08/30/19 24 08/31/2023 CBC WITH DIFFE RENTI AL/PL ATELE T lymphs 24 % notest ab. Not Available [facility] ([facility]) [address] [facility], [place], [address], 08/31/2023 08:28:23 08/30/19 24 08/31/2023 CBC WITH DIFFE RENTI AL/PL ATELE T monocytes 5 % notest ab. Not Available [facility] ([facility]) [address] [facility], [place], [address], 08/31/2023 08:28:23 08/30/19 24 08/31/2023 CBC WITH DIFFE RENTI AL/PL ATELE T eos 8 % notest ab. Not Available [facility] ([facility]) [address] [facility], [place], [address], 08/31/2023 08:28:23 08/30/19 24 08/31/2023 CBC WITH DIFFE RENTI AL/PL ATELE T basos 1 % notest ab. Not Available [facility] ([facility]) [address] [facility], [place], [address], 08/31/2023 08:28:23 08/30/19 24 08/31/2023 CBC WITH DIFFE RENTI AL/PL ATELE T neutrophils (absolute) 4.2 x10e3 /uL 1.4-7. 0 Not Available [facility] ([facility]) [address] [facility], [place], [address], 08/31/2023 08:28:23 08/30/19 24 08/31/2023 CBC WITH DIFFE RENTI AL/PL ATELE T lymphs (absolute) 1.6 x10e3 /uL 0.7-3. 1 Not Available [facility] ([facility]) [address] [facility], [place], [address], 08/31/2023 08:28:23 08/30/19 24 08/31/2023 CBC WITH DIFFE RENTI AL/PL ATELE T monocytes(ab solute) 0.4 x10e3 /uL 0.1-0. 9 Not Available [facility] ([facility]) [address] [facility], [place], [address], 08/31/2023 08:28:23 08/30/19 24 08/31/2023 CBC WITH DIFFE RENTI AL/PL ATELE T eos (absolute) 0.6 x10e3 /uL 0.0-0. 4 above high normal Not Available [facility] ([facility]) [address] [facility], [place], [address], 08/31/2023 08:28:23 08/30/19 24 08/31/2023 CBC WITH DIFFE RENTI AL/PL ATELE T baso (absolute) 0.1 x10e3 /uL 0.0-0. 2 Not Available [facility] ([facility]) [address] [facility], [place], [address], 08/31/2023 08:28:23 08/30/19 24 08/31/2023 CBC WITH DIFFE RENTI AL/PL ATELE T immature granulocytes 0 % notest ab. Not Available [facility] ([facility]) [address] [facility], [place], [address], 08/31/2023 08:28:23 08/30/19 24 08/31/2023 CBC WITH DIFFE RENTI AL/PL ATELE T immature grans (abs) 0.0 x10e3 /uL 0.0-0. 1 Not Available [facility] ([facility]) [address] [facility], [place], [address], 08/31/2023 08:28:23 10/08/19 25 10/07/2024 rapid strep group A, throa t Strep negati ve Not Available In-Office Order Internal Use Only DO Not Attach Compendium DO Not Attach Compendium, Do Not Delete/merge, [address] 10/07/2024 11:24:33 07/25/19 24 07/25/2023 CT, abdom en + pelvi s, w/o contr ast No observ ation record ed. [address] [place] [address], [address], 08/03/2023 13:17:07 07/25/19 24 07/25/2023 US, abdom en No observ ation record ed. [address], [place], [address], 07/26/2023 08:38:28 08/13/19 24 08/12/2023 CT, abdom en + pelvi s, w/ contr ast No observ ation record ed. [address], [place], [address], 08/13/2023 14:34:30 08/30/19 24 08/30/2023 CT, abdom en + pelvi s, w/ contr ast No observ ation record ed. [address], [place], [address], 10/04/2023 16:09:38 08/30/19 24 08/30/2023 CT, abdom en + pelvi s, w/ contr ast No observ ation record ed. [address], [place], [address], 10/04/2023 16:09:38 08/31/19 24 07/20/2023 MR, refugio alamoiop ancre atogr am, w/ contr ast No observ ation record ed. [facility] [address] [place], [address], 10/04/2023 16:09:38 09/05/19 24 09/05/2023 US, jerson t, billizzie eral No observ ation record ed. [address], [place], [address], 10/04/2023 16:09:38 Result Notes None recorded. Problems Name Problem SNOMED Code Status Onset Date Resolution Date Notes Provider Name and Address Organization Details Recorded Time Multiple joint pain 20412959 Active 2017 Not Available [facility] 4 23:23:41 HPV - Human papillomaviru s test positive Active 2017 Not Available [facility] 4 23:23:41 Calcaneal spur 31013318 Active 2017 Not Available [facility] 4 23:23:41 Ankle pain 839675629 Active 2017 Not Available [facility] 4 23:23:41 Acute urinary tract infection 662753189 Active 2017 Not Available [facility] 4 23:23:41 Influenza vaccination declined 051140633 Active 2017 Not Available [facility] 4 23:23:41 Hydronephrosi s 72656268 Active 2018 Not Available [facility] 4 23:23:41 Gastroesophag eal reflux disease 042322278 Active 2019 Not Available [facility] 4 23:23:41 Mammography abnormal 907981406 Active 2021 Not Available [facility] 4 23:23:40 Acute upper respiratory infection 02919625 Active Not Available [facility] 4 23:23:41 Acute pharyngitis 136340541 Active Not Available [facility] 4 23:23:41 Viral disease 02388027 Active Not Available [facility] 4 23:23:41 Body mass index 20-24 - normal 101783459 Active 2021 Not Available [facility] 4 23:23:41 Disorder of lipid metabolism 799458800 Active 2022 Not Available [facility] 4 23:23:41 Cyst of breast 065515948 Active 2022 Not Available [facility] 4 23:23:41 Acute pancreatitis 382798318 Active Rodo Monreal MD Attn: Accounting ,[address] [facility], [place], [address] , [facility] 4 14:47:13 Gastritis 4542314 Active 2023 Not Available [facility] 4 23:23:41 Problem Notes None recorded. Procedures Surgical History Date Name Laterality Status Provider Name and Address Organization Details Recorded Time 2023 esophagogastroduodenoscopy completed Otf Navarrete MD Attn: Edgard luque,[address] [facility], [place], [address], [place] - [facility] 4 15:14:29 2022 Date of Last Pap Smear completed STEPHANIE LEE Attn: Edgard luque,[address] [facility], [place], [address], [place] [facility] 3 10:50:59 2022 Date of Last Mammogram completed Kiki De Leon [place] - [facility] 3 12:12:28 2006 Tubal Ligation completed Kiki De Leon, [place] - [facility] 0 13:54:59 Caesarean Section completed Libby Chiu MA [place] - [facility] 8 14:50:49 Cholecystectomy completed Libby Chiu [place] [facility] 8 14:51:12 Caesarean Section completed Galilea Pate MA [place] - [facility] 8 17:52:56 Endometrial Ablation completed Galilea Pate [place] - [facility] 8 17:53:12 Other completed Galilea Pate [place] - [facility] 8 17:55:47 Imaging Results Imaging Date Name Status LastModified by Organiz ation Details LastModified Time 07/25/2023 CT, abdomen + pelvis, w/o contrast completed [address], [address], 08/03/2023 13:17:07 07/25/2023 US, abdomen completed [address], [address], 07/26/2023 08:38:28 08/12/2023 CT, abdomen + pelvis, w/ contrast completed [address], [address], 08/13/2023 14:34:30 08/30/2023 CT, abdomen + pelvis, w/ contrast completed [address], [address], 10/04/2023 16:09:38 08/30/2023 CT, abdomen + pelvis, w/ contrast completed [address], [address], 10/04/2023 16:09:38 07/20/2023 MR, cholangiopancr eatogram, w/ contrast completed [address], [address], 10/04/2023 16:09:38 09/05/2023 US, breast, bilateral completed [facility] [address] [facility] [address], [place], [address], 10/04/2023 16:09:38 Procedure Notes None recorded. Medical Equipment None Reported. Allergies Allergen ID Allergen Name Allergen Category Reaction Reaction Severity Criticality Documentation Date Start Date Code Code System Note Provider Name and Address Organization Details Recorded Time 071466 No known allergy (situatio n) Not available Not available Not available Not available 05/11/2022 15914 6003 SNOMED Not Available Not Available Not Available 717345 oxycodone medicatio n Not available Not available Not available 08/01/2023 7804 RxNorm Other react ions and sever ities : 'Adve rse react ion to subst ance' . Not Available Not Available Not Available 654454 clindamyc in Not available Not available Not available Not available 08/01/2023 2582 RxNorm Other react ions and sever ities : 'Adve rse react ion to subst ance' . Not Available Not Available Not Available Medications Name Sig Start Date Stop Date Status Note LastModified by Organization Details LastModified Time pantoprazol e sodium 20 mg tbec 09/11 completed Not Available Not Available Not Available proctosol hc 2.5 % crea 09/11 completed Not Available Not Available Not Available cyclobenzap rine 10 mg tablet TAKE 1/2 TO 1 TABLET BY MOUTH TWICE DAILY 08/01 completed Not Available Not Available Not Available amoxicillin 500 mg capsule TAKE ONE CAPSULE BY MOUTH EVERY 6 HOURS 09/25 completed Not Available Not Available Not Available Mapap Extra Strength 500 mg tablet 500 mg by oral route. 10/22 completed Not Available Not Available Not Available clindamycin HCl 300 mg capsule 07/21 completed Not Available Not Available Not Available cetirizine 10 mg tablet TAKE 1 TABLET BY MOUTH EVERY DAY 08/01 completed Not Available Not Available Not Available azithromyci n 250 mg tablet 05/12 completed Flu +ve 05/12 Not Available Not Available Not Available ibuprofen 800 mg tablet TAKE 1 TABLET BY MOUTH EVERY 6-8 HOURS NEEDED 08/01 completed Not Available Not Available Not Available fluconazole 150 mg tablet TAKE 1 TABLET NOW AND 1 TABLET 72 HOURS LATER 05/11 completed Not Available Not Available Not Available minocycline 100 mg capsule Take 1 capsule every 12 hours by oral route. 07/24 completed Not Available Not Available Not Available meloxicam 15 mg tablet TAKE 1 TABLET BY MOUTH EVERY DAY WITH MEALS 07/21 completed Not Available Not Available Not Available phenazopyri dine 200 mg tablet Take 1 tablet 3 times a day by oral route for 2 days. 07/16 completed Not Available Not Available Not Available ceftriaxone 250 mg solution for injection Take 250 mg by injection route. 07/24 completed Not Available Not Available Not Available Tylenol Arthritis Pain 650 mg tablet,exte nded release Take 2 tablets every 8 hours by oral route as needed for 10 days. 04/17 completed Not Available Not Available Not Available metronidazo le 500 mg tablet Take 1 tablet twice a day by oral route as directed. 08/09 completed Not Available Not Available Not Available ciprofloxac in 500 mg tablet TAKE 1 TABLET BY MOUTH TWICE DAILY 05/11 completed Not Available Not Available Not Available omeprazole 40 mg capsule,del ayed release Take 1 capsule every day by oral route as directed for 30 days. 05/06 completed Not Available Not Available Not Available tramadol 50 mg tablet TAKE 2 TABLETS BY MOUTH EVERY 6 HOURS NEEDED FOR PAIN ON A SCALE OF 4-6 04/17 completed Not Available Not Available Not Available amoxicillin 500 mg tablet TAKE 1 TABLET BY MOUTH THREE TIMES DAILY UNTIL GONE 10/06 completed Not Available Not Available Not Available acyclovir 800 mg tablet Take 1 tablet 3 times a day by oral route for 10 days. 07/11 completed Not Available Not Available Not Available ketorolac 10 mg tablet Take 1 tablet every 6 hours by oral route as needed for 5 days. 06/03 completed Not Available Not Available Not Available pantoprazol e 20 mg tablet,sea yed release Take 1 tablet by oral route. 08/01 completed Not Available Not Available Not Available Vitamin tablet Take 1 tablet every day by oral route. 07/24 completed Not Available Not Available Not Available meloxicam 7.5 mg tablet Take 1 tablet twice a day by oral route as needed. 07/24 completed Not Available Not Available Not Available oxycodone-a cetaminophe n 5 mg-325 mg tablet 07/21 completed Not Available Not Available Not Available famotidine 20 mg tablet TAKE 1 TABLET BY MOUTH EVERY 12 HOURS FOR 10 DAYS 08/01 completed Not Available Not Available Not Available dicyclomine 20 mg tablet Take 1 tablet every 6 hours by oral route. 08/09 completed Not Available Not Available Not Available benzonatate 100 mg capsule TAKE 1 CAPSULE BY MOUTH THREE TIMES DAILY FOR 5 DAYS NEEDED 08/29 completed Not Available Not Available Not Available doxycycline monohydrate 100 mg capsule Take 1 capsule twice a day by oral route for 14 days. 08/09 completed Not Available Not Available Not Available pantoprazol e 40 mg tablet,sea yed release TAKE 1 TABLET BY MOUTH EVERY DAY active Not Available Not Available No t Available oseltamivir 75 mg capsule TAKE 1 CAPSULE BY MOUTH TWICE DAILY FOR 5 DAYS DIRECTED 09/25 completed Not Available Not Available Not Available triamcinolo ne acetonide 0.1 % topical ointment APPLY THIN LAYER TOPICALLY TO THE AFFECTED AREA TWICE DAILY 05/11 completed Not Available Not Available Not Available promethazin e 25 mg tablet 05/06 completed Not Available Not Available Not Available ibuprofen 400 mg tablet TAKE 1 TABLET BY MOUTH THREE TIMES A DAY 05/11 completed Not Available Not Available Not Available omeprazole 20 mg capsule,del ayed release Take 1 capsule every day by oral route. 08/09 completed Not Available Not Available Not Available hydroxyzine HCl 25 mg tablet Take 1 tablet 3 times a day by oral route as directed for 7 days. 02/13 completed Not Available Not Available Not Available ibuprofen 600 mg tablet Take 600 mg by oral route. 08/01 completed Not Available Not Available Not Available ondansetron 4 mg disintegrat ing tablet Take 1 tablet every 4-6 hours by oral route as needed. 08/09 completed Not Available Not Available Not Available pseudoephed rine 60 mg tablet Take 1 tablet every 6 hours by oral route as needed for 5 days. 08/29 completed Not Available Not Available Not Available metoclopram david 10 mg tablet TAKE 1 TABLET BY MOUTH EVERY 6 HOURS 30 MINUTES BEFORE MEALS AND AT BEDTIME 08/01 completed Not Available Not Available Not Available Daily-Drake tablet TAKE 1 TABLET BY MOUTH EVERY DAY 05/11 completed Not Available Not Available Not Available nitrofurant oin monohydrate /macrocryst als 100 mg capsule TAKE 1 CAPSULE BY MOUTH EVERY 12 HOURS 05/11 completed Not Available Not Available Not Available ibuprofen 09/11 completed Not Available Not Available Not Available Tylenol active Not Available Not Avail able Not Available calcium 600 mg (as carbonate)- vitamin D3 10 mcg (400 unit) tablet TAKE 1 TABLET BY MOUTH TWICE A DAY 05/11 completed Not Available Not Available Not Available peg 3350-electr olytes 236 gram-22.74 gram-6.74 gram-5.86 gram solution 05/06 completed Not Available Not Available Not Available Stimulant Laxative Plus 8.6 mg-50 mg tablet TAKE 2 TABLETS BY MOUTH EVERY DAY NEEDED FOR 10 DAYS FOR CONSTIPAT ION 10/07 completed Not Available Not Available Not Available Daily-Drake (with folic acid) 400 mcg tablet TAKE 1 TABLET BY MOUTH EVERY DAY 05/11 completed Not Available Not Available Not Available Vitals Date Recorded Body height Body mass index (BMI) Body weight Heart rate Oxygen saturation Oxygen saturation in Arterial blood by Pulse oximetry Body temperature Systolic blood pressure Diastolic blood pressure Provider Name and Address Organization Details Last Updated DateTime 4 161.29 cm 24.4 kg/m2 78329.2 1 g 78 /min 97 % 97 % 98.6 [degF] 110 mm[Hg] 70 mm[Hg] Libby Chiu MA [facility] 4 14:40:36 Date Recorded Body height Body mass index (BMI) Body weight Heart rate Oxygen saturation Oxygen saturation in Arterial blood by Pulse oximetry Body temperature Systolic blood pressure Diastolic blood pressure Provider Name and Address Organization Details Last Updated DateTime 4 161.29 cm 24.6 kg/m2 14175.8 1 g 82 /min 99 % 99 % 98 [degF] 110 mm[Hg] 76 mm[Hg] Libby Chiu MA [facility] 4 16:10:28 Date Recorded Body height Body mass index (BMI) Body weight Heart rate Oxygen saturation Oxygen saturation in Arterial blood by Pulse oximetry Body temperature Respiratory rate Systolic blood pressure Diastolic blood pressure Provider Name and Address Organization Details Last Updated DateTime 4 161.29 cm 24.4 kg/m2 13662.9 3 g 74 /min 99 % 99 % 97.9 [degF] 16 /min 110 mm[Hg] 70 mm[Hg] Libby Chiu MA [facility] 4 11:01:01 Date Recorded Body height Body mass index (BMI) Body weight Heart rate Oxygen saturation Oxygen saturation in Arterial blood by Pulse oximetry Respiratory rate Systolic blood pressure Diastolic blood pressure Provider Name and Address Organization Details Last Updated DateTime 4 161.29 cm 24.2 kg/m2 96505.6 2 g 88 /min 98 % 98 % 14 /min 114 mm[Hg] 64 mm[Hg] Libby Chiu MA [facility] 4 16:05:28 Date Recorded Body weight Body mass index (BMI) Body height Heart rate Oxygen saturation Oxygen saturation in Arterial blood by Pulse oximetry Body temperature Systolic blood pressure Diastolic blood pressure Provider Name and Address Organization Details Last Updated DateTime 5 85664.0 4 g 26.5 kg/m2 161.29 cm 84 /min 99 % 99 % 98.2 [degF] 110 mm[Hg] 76 mm[Hg] Libby Chiu MA [facility] 5 10:59:34 Social History Question Answer Notes LastModified by Organizat ion Details LastModified Time Tobacco Smoking Status Never Smoker Libby Chiu MA [facility] 01/14/2018 14:49:49 Do You Have An Advance Directive? No Information not available 02/13/2018 What Is Your Level Of Alcohol Consumption? None Information not available 01/14/2018 Is Blood Transfusion Acceptable In An Emergency? Yes Information not available 02/13/2018 What Is Your Level Of Caffeine Consumption? Moderate Information not available 01/14/2018 How Much Tobacco Do You Chew? None Information not available 01/14/2018 Are You Currently Employed? Yes Information not available 02/13/2018 What Type Of Diet Are You Following? REGULAR Information not available 02/13/2018 Which Illicit Or Recreational Drugs Have You Used? None Information not available 02/13/2018 Do You Or Have You Ever Used E-cigarettes Or Vape? Never Used Electronic Cigarettes Information not available 07/11/2019 Education 12 Information no t available 02/13/2018 What Is Your Occupation? [employer] Work[employer] Information not available 02/13/2018 Hard Of Hearing Or Deaf In One Or Both Ears? No Information not available 01/14/2018 Legally Blind In One Or Both Eyes? No Information no t available 01/14/2018 Live Alone Or With Others? With Others Information not available 02/13/2018 What Was The Date Of Your Most Recent Tobacco Screening? 10/07/2024 Information not available 10/07/2024 How Many Children Do You Have? 2 Information not available 02/13/2018 Performs Monthly Self-breast Exam? Yes Information no t available 02/13/2018 Do You Use Protection During Sex? No Information not available 02/13/2018 What Is Your Relationship Status? Information not available 02/13/2018 Seat Belts Used Routinely Yes Information not available 02/13/2018 Are You Sexually Active? Yes Information not available 02/13/2018 Do You Have Smoke And Carbon Monoxide Detectors In Your Home? No Information not available 01/25/2023 Are You Passively Exposed To Smoke? No Information no t available 01/25/2023 Do You Or Have You Ever Used Smokeless Tobacco? Never Used Smokeless Tobacco Information not available 07/11/2019 How Much Tobacco Do You Smoke? No Information not available 01/14/2018 General Stress Level Low Information not available 02/13/2018 Do You Use Any Illicit Or Recreational Drugs? No Information not available 06/03/2021 Do You Use Sunscreen Routinely? No Information not available 02/13/2018 Has Tobacco Cessation Counseling Been Provided? Yes Information not available 01/25/2023 On What Date Was Tobacco Cessation Counseling Provided? 01/25/2023 Information not available 01/25/2023 How Many Years Have You Smoked Tobacco? 0 Information not available 01/14/2018 Do You Or Have You Ever Used Any Other Forms Of Tobacco Or Nicotine? No Information not available 06/03/2021 Sex: Unknown Functional Status Question Answer Note LastModified by Organization D etails LastModified Time What is your exercise level? None Information not available 02/13/2018 Mental Status None recorded. Family History Relationship Description Onset Age of this Age Resolved Age Notes LastModified by Organization Details LastModified Time Son Asthma Not available 17:49:07 Father Hypertensive disorder Not available 2017 17:49:36 Sister Migraine Not available 02/13/2018 17:50:05 Medical History Condition Response Coronary Artery Disease N Other N High Blood Pressure N Atrial Fibrillation N Depression N COPD N Blood Clots N Anesthesia Complications N Headaches/Migraines N Anxiety Disorder N Muscle, Joint, or Bone Problems N Infertility N Polyps N Acid Reflux (GERD) N Cancer N Stroke N Endometriosis N High Cholesterol N Liver Disease N Headaches N Thyroid Problems N Kidney or Bladder Problems N GI Problems N Acne N Eating Disorder N Skin Problems N Anemia N Heart Attack ([place]) N Diabetes N Ovarian Cancer N Seizures/Epilepsy N Abuse/Domestic Violence N Asthma N Allergies N Hepatitis N Heart Disease Y Pre-Eclampsia N Heart Failure N Osteoporosis N Gynecological History Statement/Question Response Abnormal Pap N Date of Last Mammogram 10/03/2022 Flow Light Date of LMP 09/23/2024 On BCP's at Conception? N STIs/STDs Yes HPV Vaccine Y Duration of Flow (days) 5 Age at Menarche 12 Current Control Method Tubal Ligat ion Age at First Child 14 Frequency of Cycle (Q days) 28 Sexually Active? Y Menses Monthly Y Date of Last Pap Smear 01/25/2023 Sexual Problems? N LMP Approximate Desired Control Method None Obstetrics History GPAL:G 3 P 2 0 1 2 Type Value Multiple Births 0 Full Term 2 Induced 0 Spontaneous 1 Premature 0 Living 2 Ectopics 0 Total 3 Immunizations Vaccine Type Date Status Note Provider Nam e and Address Organization Details Recorded Time COVID-19, mRNA, LNP-S, PF, 30 mcg/0.3 mL dose 12/24/2020 completed Not Available [facility] 4 23:23:41 COVID-19, mRNA, LNP-S, PF, 30 mcg/0.3 mL dose 11/25/2020 completed Not Available [facility] 4 23:23:41 COVID-19, mRNA, LNP-S, PF, 30 mcg/0.3 mL dose 06/26/2021 completed Not Available [facility] 4 23:23:41 COVID-19, mRNA, LNP-S, PF, 30 mcg/0.3 mL dose 12/03/2020 completed Not Available [facility] 4 23:23:41 Tdap 01/14/2018 completed Not Available [facility] 07/12/2019 02:35:53 Past Encounters Encounter ID Performer Location Encounter Start Date Encounter Closed Date Diagnosis/Indication Diagnosis SNOMED-CT Code Diagnosis ICD10 Code Diagnosis Note [id number] MD Linh Elizondo (Adult Med) [address] [place] [phone] 01/14/2018 14:36:58 01/15/2018 09:01:43 Adult health examination 051382447 Z00.00 Multiple joint pain 3567 8005 M25.50 Pruritic rash 52465701 L 28.2 Photosensi tive? Screening for malignant neoplasm of cervix 872928146 Z12.4 Administra tion of diphtheria, pertussis, and tetanus vaccine 085316927 Z23 Ankle pain 972038507 M25 .571 M25.572 Plantar heel pain 647236 03 M79.671 M79.739 [id number] LETICIA Valera (STAFF ELECT[employer]IC [employer] OFFICER) [address] [place] [phone] 02/13/2018 16:35:17 02/14/2018 08:08:02 Gynecologic examination [id number] Z01.411 Age appropriat e counseling done. Venereal d isease screening 714280526 Z11.3 Z20.2 Family ian nning surveillance 079975265 Z30.09 Counseled patient about different forms of control methods including Condoms, OCPS, Depo Provera, Nuva ring, patch, Nexplanon, IUD, -- etc. Patient refused any form of control at this time. She say she will call if she decided to start control. [id number] MD Linh Elizondo (Adult Med) [address] [place] [address] [phone] 0 02/18/2018 16:52:18 02/19/2018 08:20:22 Calcaneal spur 05592793 M77.31 Ankle pain 089542349 M25 .571 M25.572 Sprain of right ankle 11 12436670 2014009 S93.401A [id number] MERT West (Adult Med) [address] [place] [address] [phone] 0 03/25/2018 15:53:08 03/27/2018 13:10:00 Acute urinary tract infection 022465832 N39.0 [id number] MD Linh Elizondo (Adult Med) [address] [place] [address] 37162-107 0 04/01/2018 16:41:41 04/02/2018 09:42:02 Urinary tract infectious disease 76099927 N39.0 Influenza vaccination declined 725308007 Z28.21 [id number] MD Linh Medrano (STAFF ELECT[employer]IC [employer]AR[employer] OFFICER) [address] [place] [address] 06501-924 0 07/16/2018 15:26:02 07/17/2018 15:49:59 HPV - Human papillomavirus test positive 090027635 R87.619 Counseled about it. Safe sex counseling and use of condoms. PAP in 01/2019 Female pel akin inflammatory disease 370301185 N73.9 Counseled about it. Safe sex counseling and use of condoms. Advised patient no intercours e until treatment. Notified patient that Partner need to be treated. Venereal d isease screening 692464283 Z11.3 Z20.2 Pruritus of vulva 506211 00 L29.2 COUNSELED THOROUGHLY ABOUT IT. Dyspareunia 76985270 N94 .10 COUNSELED THOROUGHLY ABOUT IT. POSSIBLE FROM PID. [id number] MD Linh Elizondo (Adult Med) [address] [place] [address] [phone] 0 07/24/2018 15:47:03 07/25/2018 08:12:58 Imaging result abnormal 444007112 R93.811 Periportal edema noted on the CT scan Influenza- like illness 37446144 B34.9 Upper resp iratory infection 89217924 J06.9 Abdominal pain 21635745 R10.9 [id number] MD Linh Elizondo (Adult Med) [address] [place] [address] 32189-825 0 08/09/2018 16:31:17 08/12/2018 08:44:11 Imaging result abnormal 650789264 R93.89 Periportal edema noted on the CT scan Hydronephrosis 47191672 N13.30 Mild R. sided hydronephr osis Abdominal pain 66727314 R10.9 The etiology is unclear and the CT scan and US are non diagnostic .Stricture s?Renal although her UA is negative and this would not explain the LLQ pain [id number] MD Linh Medrano (STAFF [employer] OFFICER) [address] [place] [address] [phone] 0 08/13/2018 16:27:11 08/13/2018 16:53:17 Pain in pelvis 85788644 R10.2 IMPROVED A LOT PER PATIENT. Herpes labialis 3030091 B00.1 HPV - Rhonda n papillomavirus test positive 119421327 R87.619 Counseled about it. Safe sex counseling and use of condoms. PAP in 01/2019 Upper abdominal pain 831 44125 R10.10 Patient was referred to GI by her PCP. Advised patient that she need to f/u with GI. [id number] STEPHANIE HODGES (STAFF E[employer]IC [employer] OFFICER) [address] [place] [address] [phone] 0 07/11/2019 12:58:01 07/15/2019 10:00:49 Gynecologic examination 99510792 Z01.419 Z11.51 Z12.4 Venereal d isease screening 058571843 Z11.3 [id number] MD Linh Elizondo (Adult Med) [address] [place] [address] [phone] 0 08/01/2019 09:54:51 08/01/2019 10:48:45 Pain in right foot 6385205986 45124 M79.671 Previously diagnosed with plantar fasciitis. 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 Labs Stop NSAIDS GI follow upOmeprazo le Sore throat 417119267 J0 2.9 Conservati ve treatment [id number] MD Linh Elizondo (Adult Med) [address] [place] [address] [phone] 0 09/12/2019 09:42:48 09/12/2019 10:30:18 Abdominal pain 53010596 R10.9 An EGD is scheduled for today Lack of energy 765024802 R53.83 Pain in right foot 77836 37826 76988 M79.671 She has plantar fasciitis and she was seen by the mechanical maintenance supervisor . Screening for malignant neoplasm of breast 440224337 Z12.39 [id number] MD Linh Elizondo (Adult Med) [address] [place] [address] 47294-897 0 05/06/2020 09:19:02 05/07/2020 07:33:53 Gastroesophageal reflux disease 399591797 K21.9 Influenza vaccination declined 692049884 Z28.21 Non-neoplastic nevus 195 818343 I78.1 Pre-surger y evaluation 159657732 Z01.818 Low risk [id number] MD Linh Elizondo (Adult Med) [address] [place] [address] [phone] 0 07/21/2020 16:24:11 07/22/2020 07:57:42 Multiple joint pain 56008545 M25.50 Cyst of left breast 1073 404374 2023233 N60.02 [id number] STEPHANIE HODGES (STAFF [employer] OFFICER) [address] [place] [address] [phone] 0 09/10/2020 15:30:13 09/15/2020 08:07:40 Well woman monitoring status 250010000 Z76.89 39 y/o F presents for annual well woman exam -cervical cancer screening UTD: last Pap 07/11/19 negative, HPV- -s/p BTL for contracept ion -Educated osteoporos is prevention including calcium rich diet, weight bearing exercise. Will start supplement . -RTC in 1yr Simple cyst of breast 39 5923911 N60.02 06/08/20 mammogram and 07/05/20 ultrasound revealed simple breast cysts with no evidence of malignancy . Provided reassuranc e and encouraged annual mammograms and monthly SBE. Encouraged ice and heat packs along with ibuprofen for symptomati c relief. [id number] MD Linh Elizondo (Adult Med) [address] [place] [address] [phone] 0 06/03/2021 11:54:11 06/06/2021 10:48:14 General examination of patient 686968182 Z00.01 Screening for malignant neoplasm of breast 479803512 Z12.31 Influenza vaccination declined 923768795 Z28.21 Gastroesop hageal reflux disease 230890171 K21.9 [id number] STEPHANIE HODGES (STAFF ELECT[employer]IC [employer] OFFICER) [address] [place] [address] [phone] 0 08/31/2021 08:21:14 09/13/2021 10:01:38 Vulvovaginitis 08779409 N76.0 2 week history of vulvar/vag inal pruritis and burning with urination with accompanie d suprapubic pain. No discharge or bleeding. Has recently completed fluconazol e, Macrobid, and Cipro per UC. PE reassuring , UA negative. Pt educated to stop using all OTC products on vulva (soaps, lotions, Vagisil, Monistat) as these could be causing irritation . Start topical steroid twice daily. Follow up vaginal cultures. [id number] MD Linh Elizondo (Adult Med) [address] [place] [address] [phone] 0 05/11/2022 15:55:57 05/12/2022 09:46:36 Upper respiratory infection 95465310 J06.9 DDX: COVID?, Influenza? , RSV?LabsTy lenTes [place] perles Body mass index 20-24 - normal 687097263 Z68.24 Pain in left foot 595205 9547 91733 M79.672 PF? General ex amination of patient 170221794 Z00.01 Screening for malignant neoplasm of breast 951440249 Z12.31 [id number] MD Linh Elizondo (Adult Med) [address] [place] [address] 09164-929 0 09/25/2022 10:31:14 09/26/2022 13:47:06 Immunization advised 833631654 Z71.9 Pre-surger y evaluation 755788049 Z01.818 Low risk of complicati ons unless her labs suggest otherwise. This was discussed with the patient with the help of the urdu interpretMariya cotton ([facility]) Musculoskeletal pain 279 871483 M79.10 Fatigue 61132998 R53.83 [id number] MD Linh Elizondo (Adult Med) [address] [place] [address] 48022-766 0 12/04/2022 15:21:01 12/05/2022 11:05:22 Cyst of breast 832639199 N60.09 Disorder o f lipid metabolism 427744889 E78.9 Blood in urine 12164546 R31.9 Pre-surger y evaluation 221983245 Z01.818 Low risk of complicati ons from her planned left foot surgery unless her labs suggest otherwise. This was discussed with the patient with the help of the urdu interpretFrancy cotton ([facility]) Screening for malignant neoplasm of breast 715104420 Z12.31 Recurrent urinary tract infection 535217035 N39.0 [id number] STEPHANIE HODGES (STAFF E[employer]IC [employer] OFFICER) [address] [place] [address] 89183-898 0 01/25/2023 10:30:17 01/29/2023 12:02:15 Gynecologic examination 95884903 Z01.419 Cervical cancer screening: HPV positive in 02/13/18. Last Pap 07/11/19 NILM/HPV-, updated todayBreas t cancer screening: Last mammogram 10/03/22 BIRADS 2. Discussed SBEColonos copy: start screening at age 45STI screening: declines. Safe sex practices discussed. Contracept ion: BTLDiet/ex ercise: Counseled regarding importance of physical activity, healthy diet and appropriat e calcium intake.RTC in 1yr Fibrocysti c disease of breast 59070113 N60.19 PMHx of fibrocysti c changes in the breast, per mammograph y. Recommende d lifestyle changes. Decrease fat in the diet as well as caffeine. Also recommende d better fitting bra's, as well as OTC NSAID's prn. Overweight 572776035 E66 .3 Recommende d daily exercise with a goal of 150 min/week of moderate-s trenuous activity and a balanced diet with an emphasis on fruits, vegetables , whole grains, legumes, lean protein, and mono/polyu nsaturated fats. [id number] MD Linh Elizondo (Adult Med) [address] [place] [address] 38162-386 0 04/17/2023 14:45:04 04/18/2023 12:43:45 Pain of left knee joint 8366578962 95447 M25.562 Instabilit y of joint of left knee 5912909136 326589 M25.362 Influenza vaccination declined 976176707 Z28.21 Gastroesop hageal reflux disease 816996724 K21.9 [id number] MD Linh Elizondo (Adult Med) [address] [place] [address] 66672-846 0 08/01/2023 14:32:39 08/03/2023 13:15:06 Follow-up visit 375269432 Z09 Cyst of breast 863455221 N60.09 MMG 10/03/2022 History of pancreatitis 3499000010 9107 Z87.19 Gastritis 4675388 K29.70 Medication monitoring 39 8715549 Z51.81 [id number] MD Linh Elizondo (Adult Med) [address] [place] [address] 24448-509 0 08/09/2023 14:28:27 08/10/2023 08:54:58 Alkaline phosphatase above reference range 087016649 R74.8 Disorder o f lipid metabolism 336617144 E78.9 TG 291, LDL 108 Gastroesop hageal reflux disease 049289971 K21.9 History of pancreatitis 0900883893 9107 Z87.19 Her repeat Lipase is now normal Liver func tion tests outside reference range 365454446 R94.5 Gastritis 7846786 K29.70 EGD 4Re start Pantoprazo le [id number] MD Linh Elizondo (Adult Med) [address] [place] [address] 78631-043 0 08/16/2023 15:34:51 08/20/2023 16:13:08 Upper respiratory infection 09831429 J06.9 DDX: COVID?, Influenza? , RSV?LabsTy lenolTessa [place] perlesPseu dophedrine [id number] MD Linh Elizondo (Adult Med) [address] [place] [address] 28294-241 0 08/30/2023 10:51:59 08/30/2023 11:46:21 Gastritis 5616357 K29.70 OV 08/09/2023E GD 4Re start Pantoprazo le History of pancreatitis 0918809473 9107 Z87.19 OV 4H er repeat Lipase is now normal Abdominal pain 22758029 R10.9 [id number] MD Linh Elizondo (Adult Med) [address] [place] [address] 40754-386 0 10/04/2023 15:57:32 10/09/2023 14:29:38 History of pancreatitis 8326114877 9107 Z87.19 OV 08/09/2023H er repeat Lipase is now normal Abdominal pain 38046554 R10.9 Multifacto rial Cyst of breast 159184903 N60.09 US 09/05/2023, benign cystsMMG 10/03/2022 Chronic constipation 236 801549 K59.09 [id number] MD Linh Elizondo (Adult Med) [address] [place] [address] 12891-377 0 10/07/2024 10:48:20 10/07/2024 11:47:44 General examination of patient 128442284 Z00.01 Screening mammography 24 450485 Z12.31 Body mass index 25-29 - overweight 546728460 Z68.26 Sore throat 688271209 J0 2.9 Multiple joint pain 3567 8005 M25.50 Chronic back pain 029225 002 G89.29 Pain in pelvis 36527863 R10.2 Malaise and fatigue 2717 25044 R53.83 Health Concerns Section Related Observation LastModified by Organization Detai ls LastModified Time None Recorded Concern Status LastModified by Organization Details LastModified Time None Recorded Advance Directives Directive N: Payers Encounter Date Sequence Insurance Name Policy Number Policy Small Covered Member ID Small Member ID Guarantor Name 08/09/2023 1 [facility] [id number] Norma Mccormack-G onzalez [id number] Norma Mccormack-Go nzalez 08/16/2023 1 [facility] [id number] Norma Mccormack-G onzalez [id number] Norma Mccormack-Go nzalez 08/30/2023 1 [facility] [id number] Norma Mccormack-G onzalez [id number] Norma Mccormack-Go nzalez 10/04/2023 1 [facility] [id number] Norma Mccormack-G onzalez [id number] Norma Mccormack-Go nzalez 10/07/2024 1 [facility] [id number] Norma Mccormack-G onzalez [id number] Norma Mccormack-Go nzalez Notes Date Note Type Note Provider Name and Address Organization Details Recorded Time 4 text/html Abdominal PainReported bypatient.Quality:pain Severity:pain level 6/10 Duration:intermittent Onset/Timing:better; wax/wane Modifying Factors:eating Associated Symptoms:no fever; no chills; no blood in the urine; no heartburn; no shortness of breath Other:denies possible They said they need the prior authorization Sunday, and yesterday, some pain a little bit in my stomach Ms Abarca returns, she was seen by her senior business manager and she had some abdominal pain earlier this week and again yesterday. Both times, it was after eating her Oatmeal, she tolerates Jello without any difficulty and feels otherwise well. She is also now out of her Pantoprazole and she was told by her pharmacist that her Pantoprazole cannot be refilled with out a PA. She was previously on the 20 mg dose, and after her recent EGD on 07/27/2023 with gastritis, the dose was increased to 40 mg on her discharge from the hospital Rodo Monreal MD Attn: Accounting,[address] [place], [address], [facility] 08/09/2023 16:52:14 4 text/html Upper Respiratory SymptomsReported bypatient.Location:head; chest Quality:productive cough Severity:mild Onset/Timing:actual date: Context:no sick contacts; no foreign travel; non-smoker Associated Symptoms:no shortness of breath; no wheezing; no change in number of pillows needed to sleep at night; no sweats; no fever; no significant weight gain; no significant weight loss; no morning cough; no sore throat; no vomiting; no diarrhea; no rash; no nausea;yellow sputum Sunday, I had a lot of congestion Rodo Monreal MD Attn: Accounting,[address] [place], [address], [facility] 08/16/2023 18:20:41 4 text/html Abdominal PainReported bypatient.Location:epigas tric Quality:pain Severity:moderate Duration:intermittent Onset/Timing:better Modifying Factors:nothing gives relief; nothing makes it worse Associated Symptoms:no fever; no chills; no blood in the urine; no heartburn; no shortness of breath;nausea Other:denies possible pregnancyBack PainReported bypatient.Location:pain is not radiating Quality:sharp Severity:severe (8-10) Duration:intermittent Onset/Timing:recurrent episode Associated Symptoms:no fever; no weak limbs; no numbness of the legs/feet; no tingling; no incontinence; no shortness of breath After the hospital, I started work, it is paining a lot in my back. And my stomach. I remember when I go to the hospital for my Pancreas, my back too Tired all the time . Ms Mccormack returns, she continues to have epigastric and mid back pain, she is also nauseous but she has not vomited. She feels tired all the time and she has been following up with her senior business manager. Since her recent ER visits and admission with pancreatitis and gastritis, she has been able to return to work but she is not pain free and now there are no clear precipitating factors Rodo Monreal MD Attn: Accounting,[address] [place], [address], [facility] 08/30/2023 14:21:44 4 text/html ConstipationReported bypatient.Quality:improvi ng;hard Severity:moderate Duration:present 1-4 years Onset/Timing:once every three days Contextno recent opiates; no recent surgery; no stress; no anemia; normal toileting ability; no history of IBS; no history of chronic idiopathic constipation; no history of Hirschsprung's; no family history of colon polyps or cancer; no history of colonoscopy; no history of Diverticulosis; no abnormal imaging Alleviating Factors:having bowel movement Associated Symptoms:no excess gas; no fever; no rash; no joint pain; no weight loss; no nausea; no vomiting; no heartburn; no blood in stool; no mucus in stool; no black or tarry stools; no weakness; no nutrient deficiency; no fecal incontinence;abdominal pain Good You say four weeks, I come for here She still gets intermittent pain depending on what she eats. Her constipation is apparently chronic and she believes that she had an EGD and colonoscopy when she was seen by Dr Twiari ~ 2018 Rodo Monreal MD Attn: Accounting[address] [place], [address], [facility] 10/04/2023 16:49:05 5 text/html She declined the use of the lamination spinner It's painful for my back All the time I am tired My throat is not good Chronic pain in her back and pelvis with sudden onset of a sore throat, diarrhea and extreme fatigue. Rodo Monreal MD Attn: Accounting[address] [place], [address], [facility] 10/07/2024 13:37:02 OBGyn Episode Ob Episode Information Episode Created Date Number of Fetuses Patient Bloodtype Patient rh Status Prepregnancy Weight lbs Domestic Partner Domestic Partner Phone Father Name Equipment Man Status 02/14/20 18 1 CLOSED Fetus Data First Name Last Name Admitted to NICU Weight (g) Sex Living Outcome Pediatric Complications Fetus ID Race Codes Race Delivery Type M Full Term [id number] Isael Calculation Initial Isael Date Initial Exam Date Initial Exam Provider Initial Ultrasound Date Last Menstrual Period Date Ultra Sound Weeks Gestation 0 Eighteen To Twenty Week Isael Update Ultra Sound Date Fundal Height At Umbil Quickening Date Ultra Sound Latest Weeks Gestation Final Isael Confirmed By Final Isael Confirmed Date Final Isael Date Ultra Sound Latest Days Gestation 0 0 Menstrual History Last Menstrual Date Menses Monthly On Bcp Conception Prior Menses Frequency Hcg Plus Date Menarche Onset Age Delivery Information Delivery Date Delivery Type Labor Anesthesia Weeks Gestation Incision Type Labor Labor Length Hrs Delivered By Post Complications Tubal Sterilization Discharge Date Comments 3 Regional-Ep idural 40 false Baby was born in [place] o Discharge Information Feeding Method Contraceptive Method Maternal HG B and HCT Levels Ob Episode Information Episode Created Date Number of Fetuses Patient Bloodtype Patient rh Status Prepregnancy Weight lbs Domestic Partner Domestic Partner Phone Father Name Equipment Man Status 02/14/20 18 1 CLOSED Fetus Data First Name Last Name Admitted to NICU Weight (g) Sex Living Outcome Pediatric Complications Fetus ID Race Codes Race Delivery Type F Full Term [id number] Repeat Isael Calculation Initial Isael Date Initial Exam Date Initial Exam Provider Initial Ultrasound Date Last Menstrual Period Date Ultra Sound Weeks Gestation 0 Eighteen To Twenty Week Isael Update Ultra Sound Date Fundal Height At Umbil Quickening Date Ultra Sound Latest Weeks Gestation Final Isael Confirmed By Final Isael Confirmed Date Final Isael Date Ultra Sound Latest Days Gestation 0 0 Menstrual History Last Menstrual Date Menses Monthly On Bcp Conception Prior Menses Frequency Hcg Plus Date Menarche Onset Age Delivery Information Delivery Date Delivery Type Labor Anesthesia Weeks Gestation Incision Type Labor Labor Length Hrs Delivered By Post Complications Tubal Sterilization Discharge Date Comments 7 Regional-Ep idural 40 Baby was born in [place] o Discharge Information Feeding Method Contraceptive Method Maternal HG B and HCT Levels
--- OUTSIDE RECORDS SUMMARY | 2024-10-07 16:33 | XMS_ITS | Clinical Summary ---
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 Gender Identity Not on file Sexual Orientation Not on file Plan of Treatment Health Maintenance Due Date Last Done Comments Hepatitis C Virus (HCV) Screening 1979 TdaP Immunization 1979 Hepatitis B Immunization (1 of 3 - 19+ 3-dose series) 12/18/1998 Pap Smear 12/18/2000 Cervical Cancer Screening (CCS) 12/18/2009 HPV/Cotest 12/18/2009 Discussion re Starting/Frequ ency of Mammograms 2019 Influenza Immunization (#1) 2024 SARS-COV-2 Immunization ( season) 2024 Respiratory Syncytial Virus (RSV) Immunization (Adult) (1 - 1-dose 75+ series) 12/18/2054 Meningococcal Immunization (ACWY) Aged Out No longer eligible based on patient's age to complete this topic Pneumococcal Immunization Combined Aged Out No longer eligible based on patient's age to complete this topic Rotavirus Immunization Aged Out No lo nger eligible based on patient's age to complete this topic
--- OUTSIDE RECORDS SUMMARY | 2024-10-07 16:33 | XMS_ITS | Continuity of Care Document ---
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 Phone Unavailable Unavailable Unavailable Allergies, Adverse Reactions, Alerts Substance Reaction Status Criticality No Known allergies Procedures Procedure Date COLLECTION OF VENOUS BLOOD BY GISELEIPALICE VILLA OFFICE/OUTPATIENT VISIT, NEW Results Test Name Date and Time Measure Units Reference Range Abnormal Flag Status Comments Panel Description: LIPID PANEL Preliminary CHOLESTEROL , TOTAL 13:59:00 Preliminary HDL CHOLESTEROL 13:59:00 Preliminary TRIGLYCERID ES 13:59:00 Preliminary LDL-CHOLEST REGLA 13:59:00 Preliminary CHOL/HDLC RATIO 13:59:00 Preliminary NON HDL CHOLESTEROL 13:59:00 Preliminary Test performe d at [facility] [id number] [place] [address]Zekby tor: TOBY GONZALEZ DO,MPH Panel Description: LIPID PANEL Preliminary CHOLESTEROL , TOTAL 00:35:00 Preliminary HDL CHOLESTEROL 00:35:00 Preliminary TRIGLYCERID ES 00:35:00 Preliminary LDL-CHOLEST REGLA 00:35:00 Preliminary CHOL/HDLC RATIO 00:35:00 Preliminary NON HDL CHOLESTEROL 00:35:00 Preliminary Test performe d at [facility] [id number] [place] [address]Cjfpq tor: TOBY GONZALEZ DO,MPH Panel Description: LIPID PANEL Preliminary CHOLESTEROL , TOTAL 02:37:00 Preliminary HDL CHOLESTEROL 02:37:00 Preliminary TRIGLYCERID ES 02:37:00 Preliminary LDL-CHOLEST REGLA 02:37:00 Preliminary CHOL/HDLC RATIO 02:37:00 Preliminary NON HDL CHOLESTEROL 02:37:00 Preliminary Test performe d at [facility] [address] [address]Xlwzf tor: TOBY GONZALEZ DO,MPH Panel Description: LIPID PANEL Final CHOLESTEROL , TOTAL 03:31:00 159 mg/dL 125-200 N Final HDL CHOLESTEROL 03:31:00 37 mg/dL > OR = 46 L Final TRIGLYCERID ES 03:31:00 126 mg/dL <150 N Final LDL-CHOLEST REGLA 03:31:00 97 mg/dL (calc) <130 N Final Desirable range <100 mg/dL for patients with CHD ordiabetes and <70 mg/dL for diabetic patients withknown heart disease. CHOL/HDLC RATIO 03:31:00 4.3 (calc) < OR = 5.0 N Final NON HDL CHOLESTEROL 03:31:00 122 mg/dL (calc) N Final Target for non-HDL cholesterol is 30 mg/dL higher than LDL cholesterol target.Test performed at [facility] [address] [address]Dxmzg tor: TOBY GONZALEZ DO,MPH Panel Description: HIV AB, HIV 1/2, EIA, WITH RE FLEXES Final HIV 1/2 EIA AB SCREEN 11:15:00 NON-REACTIV E NON-REACTI VE N Final A Nonreactive HIV-1/2 antibody result does notexclude HIV infection since the time frame forseroconversi on is variable. If acute HIV infection issuspected, antibody retesting and nucleic acidamplificati on (HIV DNA/RNA) testing is recommended.Brad t performed at [facility] [address] [address]Ulawi tor: TOBY GONZALEZ DO,MPH Panel Description: CHLAMYDIA/N. GONORRHOEAE DNA, SDA Final CHLAMYDIA TRACHOMATIS DNA, SDA 15:06:00 NOT DETECTED NOT DETECTED N Final NEISSERIA GONORRHOEAE DNA, VAA 15:06:00 NOT DETECTED NOT DETECTED N Final [id number] 15:06:00 SEE NOTE Final This test was performed using the BD ProbeT[employer](TM)Chl amydia trachomatis and Neisseria gonorrhoeae Amplified DNA Assays.Test performed at [facility] [place] [id number] tor: TOBY GONZALEZ DO,MPH Panel Description: RPR (DX) W/REFL TITER AND CONFIRMATORY TESTING Final RPR (DX) W/REFL TITER AND CONFIRMATOR Y TESTING 14:39:00 NON-REACTIV E NON-REACTI VE N Final Test performed at [facility] [address] [address]Jhuuc tor: TOBY GONZALEZ DO,MPH Panel Description: COMPREHENSIVE METABOLIC PANEL Preliminary GLUCOSE 13:59:00 Preliminary UREA NITROGEN (BUN) 13:59:00 Preliminary CREATININE 13:59:00 Preliminary eGFR NON-AFR. ISRAELI 13:59:00 Preliminary eGFR 13:59:00 Preliminary BUN/CREATIN INE RATIO 13:59:00 Preliminary SODIUM 13:59:00 Preliminary POTASSIUM 13:59:00 Preliminary CHLORIDE 13:59:00 Preliminary CARBON DIOXIDE 13:59:00 Preliminary CALCIUM 13:59:00 Preliminary PROTEIN, TOTAL 13:59:00 Preliminary ALBUMIN 13:59:00 Preliminary GLOBULIN 13:59:00 Preliminary ALBUMIN/TIAGO BULIN RATIO 13:59:00 Preliminary BILIRUBIN, TOTAL 13:59:00 Preliminary ALKALINE PHOSPHATASE 13:59:00 Preliminary AST 13:59:00 Preliminary ALT 13:59:00 Preliminary Test performe d at [facility] [address] [address]Envxu tor: TOBY GONZALEZ DO,MPH Panel Description: COMPREHENSIVE METABOLIC PANEL Preliminary GLUCOSE 00:35:00 Preliminary UREA NITROGEN (BUN) 00:35:00 Preliminary CREATININE 00:35:00 Preliminary eGFR NON-AFR. ISRAELI 00:35:00 Preliminary eGFR 00:35:00 Preliminary BUN/CREATIN INE RATIO 00:35:00 Preliminary SODIUM 00:35:00 Preliminary POTASSIUM 00:35:00 Preliminary CHLORIDE 00:35:00 Preliminary CARBON DIOXIDE 00:35:00 Preliminary CALCIUM 00:35:00 Preliminary PROTEIN, TOTAL 00:35:00 Preliminary ALBUMIN 00:35:00 Preliminary GLOBULIN 00:35:00 Preliminary ALBUMIN/TIAGO BULIN RATIO 00:35:00 Preliminary BILIRUBIN, TOTAL 00:35:00 Preliminary ALKALINE PHOSPHATASE 00:35:00 Preliminary AST 00:35:00 Preliminary ALT 00:35:00 Preliminary Test performe d at [facility] [id number] [place] [address]Ravpo tor: TOBY GONZALEZ DO,MPH Panel Description: COMPREHENSIVE METABOLIC PANEL Preliminary GLUCOSE 02:37:00 Preliminary UREA NITROGEN (BUN) 02:37:00 Preliminary CREATININE 02:37:00 Preliminary eGFR NON-AFR. ISRAELI 02:37:00 Preliminary eGFR 02:37:00 Preliminary BUN/CREATIN INE RATIO 02:37:00 Preliminary SODIUM 02:37:00 Preliminary POTASSIUM 02:37:00 Preliminary CHLORIDE 02:37:00 Preliminary CARBON DIOXIDE 02:37:00 Preliminary CALCIUM 02:37:00 Preliminary PROTEIN, TOTAL 02:37:00 Preliminary ALBUMIN 02:37:00 Preliminary GLOBULIN 02:37:00 Preliminary ALBUMIN/TIAGO BULIN RATIO 02:37:00 Preliminary BILIRUBIN, TOTAL 02:37:00 Preliminary ALKALINE PHOSPHATASE 02:37:00 Preliminary AST 02:37:00 Preliminary ALT 02:37:00 Preliminary Test performe d at [facility] [id number] [place], [place] [address]Qxhlp tor: TOBY GONZALEZ DO,MPH Panel Description: COMPREHENSIVE METABOLIC PANEL Final GLUCOSE 03:31:00 79 mg/dL 65-99 N Final Fasting reference interval UREA NITROGEN (BUN) 03:31:00 10 mg/dL 7-25 N Final CREATININE 03:31:00 0.71 mg/dL 0.50-1.10 N Final eGFR NON-AFR. ISRAELI 03:31:00 112 mL/min /1.73m 2 > OR = 60 N Final eGFR 03:31:00 130 mL/min /1.73m 2 > OR = 60 N Final BUN/CREATIN INE RATIO 03:31:00 NOT APPLICABLE (calc) 6-22 Final SODIUM 03:31:00 140 mmol/L 135-146 N Final POTASSIUM 03:31:00 4.8 mmol/L 3.5-5.3 N Final CHLORIDE 03:31:00 105 mmol/L 98-110 N Final CARBON DIOXIDE 03:31:00 24 mmol/L 19-30 N Final CALCIUM 03:31:00 9.4 mg/dL 8.6-10.2 N Final PROTEIN, TOTAL 03:31:00 7.2 g/dL 6.1-8.1 N Final ALBUMIN 03:31:00 4.7 g/dL 3.6-5.1 N Final GLOBULIN 03:31:00 2.5 g/dL (calc) 1.9-3.7 N Final ALBUMIN/TIAGO BULIN RATIO 03:31:00 1.9 (calc) 1.0-2.5 N Final BILIRUBIN, TOTAL 03:31:00 0.4 mg/dL 0.2-1.2 N Final ALKALINE PHOSPHATASE 03:31:00 86 U/L 33-115 N Final AST 03:31:00 17 U/L 10-30 N Final ALT 03:31:00 13 U/L 6-29 N Final Test performed at [facility] [place] [id number] tor: TOBY GONZALEZ DO,MPH Panel Description: CHLAMYDIA/N. GONORRHOEAE DNA, SDA Preliminary CHLAMYDIA TRACHOMATIS DNA, SDA 11:15:00 Preliminary NEISSERIA GONORRHOEAE DNA, VAA 11:15:00 Preliminary Test performe d at [facility] [place] [id number] tor: TOBY GONZALEZ DO,MPH Panel Description: RPR (DX) W/REFL TITER AND CONFIRMATORY TESTING Preliminary RPR (DX) W/REFL TITER AND CONFIRMATOR Y TESTING 15:06:00 Preliminary Test performe d at [facility] [place] [id number] tor: TOBY GONZALEZ DO,MPH Panel Description: POC URINALYSIS, UA Final PH 13:59:00 6.5 5.0-8.0 N Final SPECIFIC GRAVITY 13:59:00 1.015 1.00-1.035 N Final GLUCOSE 13:59:00 NEGATIVE NEGATIVE N Final BILIRUBIN 13:59:00 NEGATIVE NEGATIVE N Final KETONES 13:59:00 NEGATIVE NEGATIVE N Final OCCULT BLOOD 13:59:00 NEGATIVE NEGATIVE N Final PROTEIN 13:59:00 NEGATIVE NEGATIVE N Final NITRITE 13:59:00 NEGATIVE NEGATIVE N Final LEUKOCYTE ESTERASE 13:59:00 NEGATIVE NEGATIVE N Final Test performed at [facility] [address] [address]Ngupw tor: JOY GRAY MT([facility]) Panel Description: CBC (INCLUDES DIFF/PLT) Meera l WHITE BLOOD CELL COUNT 00:35:00 8.0 [place]/uL 3.8-10.8 N Final RED BLOOD CELL COUNT 00:35:00 4.91 Millio n/uL 3.80-5.10 N Final HEMOGLOBIN 00:35:00 14.5 g/dL 11.7-15.5 N Final HEMATOCRIT 00:35:00 43.4 % 35.0-45.0 N Final MCV 00:35:00 88.3 fL 80.0-100.0 N Final MCH 00:35:00 29.4 pg 27.0-33.0 N Final MCHC 00:35:00 33.3 g/dL 32.0-36.0 N Final RDW 00:35:00 13.3 % 11.0-15.0 N Final PLATELET COUNT 00:35:00 [address] [place] [address]/uL 140-400 N Final ABSOLUTE NEUTROPHILS 00:35:00 5424 cells/ uL 2058-5651 N Final ABSOLUTE LYMPHOCYTES 00:35:00 2072 cells/ uL 850-3900 N Final ABSOLUTE MONOCYTES 00:35:00 288 cells/ uL 200-950 N Final ABSOLUTE EOSINOPHILS 00:35:00 168 cells/ uL 15-500 N Final ABSOLUTE BASOPHILS 00:35:00 48 cells/ uL 0-200 N Final NEUTROPHILS 00:35:00 67.8 % N Final LYMPHOCYTES 00:35:00 25.9 % N Final MONOCYTES 00:35:00 3.6 % N Final EOSINOPHILS 00:35:00 2.1 % N Final BASOPHILS 00:35:00 0.6 % N Final Test performed at [facility] [id number] [place] [address]Vjnck tor: TOBY GONZALEZ DO,MPH Panel Description: HIV AB, HIV 1/2, EIA, WITH RE FLEXES Preliminary HIV 1/2 EIA AB SCREEN 02:37:00 Preliminary Test performe d at [facility] [address]Direc tor: TOBY GONZALEZ DO,MPH Panel Description: HIV AB, HIV 1/2, EIA, WITH RE FLEXES Preliminary HIV 1/2 EIA AB SCREEN 03:31:00 Preliminary Test performe d at [facility] [address]Direc tor: TOBY GONZALEZ DO,MPH Panel Description: RPR (DX) W/REFL TITER AND CONFIRMATORY TESTING Preliminary RPR (DX) W/REFL TITER AND CONFIRMATOR Y TESTING 11:15:00 Preliminary Test performe d at [facility] [address]Direc tor: TOBY GONZALEZ DO,MPH Panel Description: CBC (INCLUDES DIFF/PLT) Prel iminary WHITE BLOOD CELL COUNT 13:59:00 Preliminary RED BLOOD CELL COUNT 13:59:00 Preliminary HEMOGLOBIN 13:59:00 Preliminary HEMATOCRIT 13:59:00 Preliminary MCV 13:59:00 Preliminary MCH 13:59:00 Preliminary MCHC 13:59:00 Preliminary RDW 13:59:00 Preliminary PLATELET COUNT 13:59:00 Preliminary MPV 13:59:00 Preliminary ABSOLUTE NEUTROPHILS 13:59:00 Preliminary ABSOLUTE BAND NEUTROPHILS 13:59:00 Preliminary ABSOLUTE METAMYELOCY BRAD 13:59:00 Preliminary ABSOLUTE MYELOCYTES 13:59:00 Preliminary ABSOLUTE PROMYELOCYT ES 13:59:00 Preliminary ABSOLUTE LYMPHOCYTES 13:59:00 Preliminary ABSOLUTE MONOCYTES 13:59:00 Preliminary ABSOLUTE EOSINOPHILS 13:59:00 Preliminary ABSOLUTE BASOPHILS 13:59:00 Preliminary ABSOLUTE BLASTS 13:59:00 Preliminary ABSOLUTE NUCLEATED RBC 13:59:00 Preliminary NEUTROPHILS 13:59:00 Preliminary BAND NEUTROPHILS 13:59:00 Preliminary METAMYELOCY BRAD 13:59:00 Preliminary MYELOCYTES 13:59:00 Preliminary PROMYELOCYT ES 13:59:00 Preliminary LYMPHOCYTES 13:59:00 Preliminary REACTIVE LYMPHOCYTES 13:59:00 Preliminary MONOCYTES 13:59:00 Preliminary EOSINOPHILS 13:59:00 Preliminary BASOPHILS 13:59:00 Preliminary BLASTS 13:59:00 Preliminary NUCLEATED RBC 13:59:00 Preliminary COMMENT(S) 13:59:00 Preliminary Test performe d at [facility] [id number] [facility] [place] [address]Ubvsd tor: TOBY GONZALEZ DO,MPH Panel Description: HIV AB, HIV 1/2, EIA, WITH RE FLEXES Preliminary HIV 1/2 EIA AB SCREEN 00:35:00 Preliminary Test performe d at [facility] [id number] [place] [address]Djcsn tor: TOBY GOZNALEZ DO,MPH Panel Description: TSH Final TSH 02:37:00 1.35 mIU/L N Final Reference Rang e > or = 20 Years 0.40-4.50 Ranges First trimester 0.26-2.66 Second trimester 0.55-2.73 Third trimester 0.43-2.91Test performed at [facility] [id number] [place] [address]Lcirz tor: TOBY GONZALEZ DO,MPH Panel Description: CHLAMYDIA/N. GONORRHOEAE DNA, SDA Preliminary CHLAMYDIA TRACHOMATIS DNA, SDA 03:31:00 Preliminary NEISSERIA GONORRHOEAE DNA, SDA 03:31:00 Preliminary Test performe d at [facility] [id number] [facility] [place] [address]Kbkav tor: TOBY GONZALEZ DO,MPH Panel Description: HIV AB, HIV 1/2, EIA, WITH RE FLEXES Preliminary HIV 1/2 EIA AB SCREEN 13:59:00 Preliminary Test performe d at [facility] [address], [address]Ajgdd tor: TOBY GONZALEZ DO,MPH Panel Description: TSH Preliminary TSH 00:35:00 Preliminary Test performe d at [facility] [address], [address]Nasna tor: TOBY GONZALEZ DO,MPH Panel Description: CHLAMYDIA/N. GONORRHOEAE DNA, SDA Preliminary CHLAMYDIA TRACHOMATIS DNA, VAA 02:37:00 Preliminary NEISSERIA GONORRHOEAE DNA, VAA 02:37:00 Preliminary Test performe d at [facility] [address], [address]Nsull tor: TOBY GONZALEZ DO,MPH Panel Description: RPR (DX) W/REFL TITER AND CONFIRMATORY TESTING Preliminary RPR (DX) W/REFL TITER AND CONFIRMATOR Y TESTING 03:31:00 Preliminary Test performe d at [facility] [address], [address]Axqny tor: TOBY GONZALEZ DO,MPH Panel Description: TSH Preliminary TSH 13:59:00 Preliminary Test performe d at [facility] [address], [address]Ojtys tor: TOBY GONZALEZ DO,MPH Panel Description: CHLAMYDIA/N. GONORRHOEAE DNA, SDA Preliminary CHLAMYDIA TRACHOMATIS DNA, VAA 00:35:00 Preliminary NEISSERIA GONORRHOEAE DNA, VAA 00:35:00 Preliminary Test performe d at [facility] [address], [address]Ddxaf tor: TOBY GONZALEZ DO,MPH Panel Description: RPR (DX) W/REFL TITER AND CONFIRMATORY TESTING Preliminary RPR (DX) W/REFL TITER AND CONFIRMATOR Y TESTING 02:37:00 Preliminary Test performe d at [address] [address]Arexy tor: TOBY GONZALEZ DO,MPH Panel Description: CHLAMYDIA/N. GONORRHOEAE DNA, SDA Preliminary CHLAMYDIA TRACHOMATIS DNA, SDA 13:59:00 Preliminary NEISSERIA GONORRHOEAE DNA, VAA 13:59:00 [place] [address]Direc tor: TOBY GONZALEZ DO,MPH Panel Description: RPR (DX) W/REFL TITER AND CONFIRMATORY TESTING Preliminary RPR (DX) W/REFL TITER AND CONFIRMATOR Y TESTING 00:35:00 Preliminary Test performe d at [facility] [place] [id number] tor: TOBY GONZALEZ DO,MPH Panel Description: RPR (DX) W/REFL TITER AND CONFIRMATORY TESTING Preliminary RPR (DX) W/REFL TITER AND CONFIRMATOR Y TESTING 13:59:00 Preliminary Test performe d at [facility] [address] [address]Ppube tor: TOBY GONZALEZ DO,MPH Advance Directives Directive Yes / No Effective Date File Name Resuscitation Not Answered N/A N/A Life Support Not Answered N/A N/A Intubation Not Answered N/A N/A Antibiotics Not Answered N/A N/A IV Fluid Support Not Answered N/A N/A Tube Feed Not Answered N/A N/A Other Directive N/A N/A WARNING:The information contained in this section is historical and is provided for information only and does not constitute a legal document or any assurance that the information is still accurate. Please verify the information with the pena of the legal document before using it for clinical purposes. Encounters Encounter Description Practice Location Reason(s) For Visit Diagnoses Date Provider Providers Copied on Encounter OFFICE/OUTPAT IENT VISIT, [facility] [employer] [facility] , [address], [place], [place], [id number], [place] tel:[phone] [facility] [place] back pain (chief complaint) Subscapular painRoutine adult health maintenance No Information Family History Family Member Type Diagnosis Age At Onset No Information Payers Payer name Insurance type Covered green party ID Zeinab pompa(s) No Information Social History Type Description Quantity Date Captured Comments Alcohol Use Details No Caffeine Use Details Unknown Tobacco Use Status No Information Smoking Status Never smoker Non-Smoking Tobacco Use Details : No Details Available : No Details Available Sex Female Vital Signs Date / Time: Height Weight BMI Pulse Rate Blood Pressure Temperature Respiratory Rate Body Surface Area Head Circumference Head Circ. Percentile Wt./Kristofer. Percentile BMI percentile Pulse Ox Inhaled Ox 11:09 AM 63.00 in 133.00 lbs 23.5 6 kg/m eter (2) 62 /min 101/68 mm[Hg] 98.70 F 18 /min Chief Complaint And Reason For Visit From encounter dated '03/14/2013 10:00'. back pain (chief complaint) Reason For Referral Reason For Referral No Information Plan Of Treatment Date Type Action Status Goal Lipid Panel. Due on 013 due Goal BMP fasting. Due on 013 due Goal ALT. Due on due Goal AST. Due on due Goal TSH. Due on due Goal Urinalysis. Due on 13 due History Of Present Illness Encounter Date Complaint History Of Prese nt Illness No Information Functional Status Date Functional Assessmen t Pain Score 0/10 Instructions Date Instruction Additional Infor mation No Information Assessments Type Assessment Date No Information Mental Status Date Cognitive Assessment Orientation - Saxon ed to time, place, person, situation. Patient Care Teams Name Effective Dates (start - stop) Status Members No Information
--- OUTSIDE RECORDS SUMMARY | 2024-10-07 16:33 | XMS_ITS | Continuity of Care Document ---
Author Organization [facility] JOSELinh Morrissey (Adult Med) Address [address] [place] [address] Care Team Providers Care Program Management Analyst Name Role Phone ELMO VILLALOBOS Primary Care Provider VIRGILIO Funes Manager Convention [phone] ELMO VILLALOBOS Dehydrogenation Operator UMA SZYMANSKI Manager Convention Assessment No assessment recorded. Plan of Treatment Reminders Order Date Submit Date Provider Last Modified By Organization Details Last Modified Time Details Appointments ACUTE 15 2024 10:00A Marina Monreal MD Not available Not available Not available ANY 30 2024 02:15P Marina Monreal MD Not available Not available Not available Lab CMP, serum or plasma 2024 025 [place] [facility], [address], [place], [address], 10/07/2024 11:10:56 urinalysi s macro (dipstick ) panel, urine 2024 025 [place] [facility], [address], [place], [address], 10/07/2024 11:10:56 lipid panel, serum 2024 025 [place] [facility], [address], [place], [address], 10/07/2024 11:10:55 CBC 2024 025 [facility], [address], [place], [address], 10/07/2024 11:10:57 vitamin D, 25-hydrox y, total, serum 2024 [facility], [address], [place], [address], 10/07/2024 11:10:56 rapid strep group A, throat 2024 [place] In-Office Order, Internal Use Only DO Not Attach Compendium DO Not Attach Compendium, Do Not Delete/merge, [id number] 10/07/2024 12:48:20 influenza virus A + B + SARS-CoV- 2 (COVID19) Ag panel, rapid IA, upper respirato ry specimen 2024 [facility] (Lab), [facility] [address], [place], [address], 10/07/2024 12:15:20 TSH, ultra-sen sitive, serum 2024 [facility], [address], [place], [address], 10/07/2024 11:28:47 vitamin B12, serum 2024 [facility], [address], [place], [address], 10/07/2024 11:28:47 rf (rheumato id factor) + anti-ccp abs, serum 2024 [facility], [address], [place], [address], 10/07/2024 11:26:54 HbA1c (hemoglob in A1c), blood 2024 025 [place] [facility], [address], [place], [address], 10/07/2024 11:11:53 Referral None recorded. Procedures None recorded. Surgeries None recorded. Imaging MAMMO, screening , bilateral 2024 [facility] (Mammography) , [address], [place], [address], 10/07/2024 11:50:29 XR, hip + pelvis, bilateral - Pain 2024 [facility] (Imaging), [facility] [facility] [address], [place], [address], 10/07/2024 11:50:30 XR, lumbosacr al spine, 2 or 3 view - Pain 2024 [facility] (Imaging), [facility] [address], [place], [address], 10/07/2024 12:00:46 Medication Orders None recorded. Patient TargetsNo targets recorded. Patient Instructions Encounter Date Encounter Id Patient Instructions Last Modified By Organization Details Last Modified Time 10/07/2024 [id number] mamograf a: sobre esta prueba - [mammogram: [...] Not available 10/07/2024 11:40:15 Reason for Referral None Reported. Results Created Date Observation Date Name Description Value Unit Range Abnormal Flag Note LastModifiedBy Organization Detail LastModifiedTime 10/08/19 25 10/07/2024 rapid strep group A, throa t Strep negati ve Not Available In-Office Order Internal Use Only DO Not Attach Compendium DO Not Attach Compendium, Do Not Delete/merge, [id number] 10/07/2024 11:24:33 Result Notes None recorded. Problems Name Problem SNOMED Code Status Onset Date Resolution Date Notes Provider Name and Address Organization Details Recorded Time Multiple joint pain 53247132 Active 2017 Not Available [facility] 4 23:23:41 HPV - Human papillomaviru s test positive Active 2017 Not Available [facility] 4 23:23:41 Calcaneal spur 08534032 Active 2017 Not Available [facility] 4 23:23:41 Ankle pain 023407867 Active 2017 Not Available [facility] 4 23:23:41 Acute urinary tract infection 680980861 Active 2017 Not Available [facility] 4 23:23:41 Influenza vaccination declined 083593495 Active 2017 Not Available [facility] 4 23:23:41 Hydronephrosi s 41624534 Active 2018 Not Available [facility] 4 23:23:41 Gastroesophag eal reflux disease 231099073 Active 2019 Not Available [facility] 4 23:23:41 Mammography abnormal 863059978 Active 2021 Not Available [facility] 4 23:23:40 Acute upper respiratory infection 16988643 Active Not Available [facility] 4 23:23:41 Acute pharyngitis 997828891 Active Not Available [facility] 4 23:23:41 Viral disease 67218069 Active Not Available [facility] 4 23:23:41 Body mass index 20-24 - normal 119049314 Active 2021 Not Available [facility] 4 23:23:41 Disorder of lipid metabolism 880167705 Active 06/12/ 2023 Not Available [facility] 4 23:23:41 Cyst of breast 028050408 Active 2022 Not Available [facility] 4 23:23:41 Acute pancreatitis 547206205 Active Rodo Monreal MD Attn: Accounting ,[address] [facility], [place], [address] , [place] - [facility] 4 14:47:13 Gastritis 3432678 Active 2023 Not Available [facility] 4 23:23:41 Problem Notes None recorded. Procedures Surgical History Date Name Laterality Status Provider Name and Address Organization Details Recorded Time 2023 esophagogastroduodenoscopy completed Otf Navarrete MD Attn: Edgard luque,[address] [facility], [place], [address], [place] - [facility] 4 15:14:29 2022 Date of Last Pap Smear completed STEPHANIE LEE Attn: Edgard luque,[address] [facility], [place], [address], [place] [facility] 3 10:50:59 2022 Date of Last Mammogram completed Kiki De Leon [place] [facility] 3 12:12:28 2006 Tubal Ligation completed Kiki De Leon [place] [facility] 0 13:54:59 Caesarean Section completed Libby Chiu [place] [facility] 8 14:50:49 Cholecystectomy completed Libby Chiu [place] [facility] 8 14:51:12 Caesarean Section completed Galilea Pate [place] [facility] 8 17:52:56 Endometrial Ablation completed Galilea Pate [place] [facility] 8 17:53:12 Other completed Galilea Pate [place] [facility] 8 17:55:47 Imaging Results None recorded. Procedure Notes None recorded. Medical Equipment None Reported. Allergies Allergen ID Allergen Name Allergen Category Reaction Reaction Severity Criticality Documentation Date Start Date Code Code System Note Provider Name and Address Organization Details Recorded Time 431372 No known allergy (situatio n) Not available Not available Not available Not available 05/11/2022 70423 6003 SNOMED Not Available Not Available Not Available 388954 oxycodone medicatio n Not available Not available Not available 08/01/2023 7804 RxNorm Other react ions and sever ities : 'Adve rse react ion to subst ance' . Not Available Not Available Not Available 485431 clindamyc in Not available Not available Not [...] Available Not Available Vitals Date Recorded Body weight Body mass index (BMI) Body height Heart rate Oxygen saturation Oxygen saturation in Arterial blood by Pulse oximetry Body temperature Systolic blood pressure Diastolic blood pressure Provider Name and Address Organization Details Last Updated DateTime 5 24831.0 4 g 26.5 kg/m2 161.29 cm 84 /min 99 % 99 % 98.2 [degF] 110 mm[Hg] 76 mm[Hg] Libby Chiu MA [place] - [facility] 5 10:59:34 Social History Question Answer Notes LastModified by Organizat ion Details LastModified Time Tobacco Smoking Status Never Smoker Libby Chiu MA [facility], [place] - [facility] 01/14/2018 14:49:49 Do You Have An [...] available 02/13/2018 What Is Your Occupation? [employer] Information not available 02/13/2018 Hard Of Hearing [...] High Blood Pressure N Atrial Fibrillation N Kidney or Bladder Problems N Thyroid Problems N Depression N COPD N Blood Clots N GI Problems N Acne N Skin Problems N Eating Disorder N Anemia N Anesthesia Complications N Heart Attack ([place]) N Headaches/Migraines N Anxiety Disorder N Ovarian Cancer N Diabetes N Muscle, Joint, or Bone Problems N Seizures/Epilepsy N Infertility N Polyps N Acid Reflux (GERD) N Cancer N Stroke N Abuse/Domestic Violence N Asthma N Allergies N Endometriosis N High Cholesterol N Hepatitis N Liver Disease N Heart Disease Y Headaches N Pre-Eclampsia N Osteoporosis N Heart Failure N Gynecological History Statement/Question Response Abnormal Pap [...] mcg/0.3 mL dose 12/24/2020 completed Not Available [facility] 4 23:23:41 COVID-19, mRNA, LNP-S, PF, 30 mcg/0.3 mL dose 11/25/2020 completed Not Available [facility] 4 23:23:41 COVID-19, mRNA, LNP-S, PF, 30 mcg/0.3 mL dose 06/26/2021 completed Not Available [facility] 4 23:23:41 COVID-19, mRNA, LNP-S, PF, 30 mcg/0.3 mL dose 12/03/2020 completed Not Available [facility] 4 23:23:41 Tdap 01/14/2018 completed Not Available [facility] 07/12/2019 02:35:53 Past Encounters Encounter ID Performer Location Encounter Start Date Encounter Closed Date Diagnosis/Indication Diagnosis SNOMED-CT Code Diagnosis ICD10 Code Diagnosis Note [id number] Rodo Monreal MD [facility] (Adult [facility]) [address] [place] [address] 10/07/2024 10:48:20 10/07/2024 11:47:44 General examination of patient 785670125 Z00.01 Screening mammography 24 979710 Z12.31 Body mass index 25-29 - overweight 703598267 Z68.26 Sore throat 997488465 J0 2.9 Multiple joint pain 3567 8005 M25.50 Chronic back pain 269922 002 G89.29 Pain in pelvis 23543190 R10.2 Malaise and fatigue 2717 14292 R53.83 Health Concerns Section Related Observation LastModified by Organization Detai ls LastModified Time None Recorded Concern Status LastModified by Organization Details LastModified Time None Recorded Payers Encounter Date Sequence Insurance Name Policy Number Policy Small Covered Member ID Small Member ID Guarantor Name 10/07/2024 1 [facility] [id number] Norma De Dios onzapedrito [id number] Norma Toribio nzalez Notes Date Note Type Note Provider Name and Address Organization Details Recorded Time 10/07/2024 text/html She declined the use of the journal clerk It's painful for my back All the time I am tired My throat is not good Chronic pain in her back and pelvis with sudden onset of a sore throat, diarrhea and extreme fatigue. Rodo Monreal MD Attn: Accounting[address] [place], [address], [place] [facility] 10/07/2024 13:37:02 OBGyn Episode No OBEpisode recorded.
== END 2024-10-07 15:34 | disposition home or self-care (01) ==
PROVIDERS: PCP Internal Medicine Infectious Disease; Visit Provider Internal Medicine Infectious Disease
DX: R10.2 Pelvic and perineal pain (principal); M54.9 Dorsalgia, unspecified; G89.29 Other chronic pain
CPT/HCPCS: 72100; 73521